=== PATIENT | female | born 1995 | race Caucasian/White ===

== ENCOUNTER 2017-07-15 07:15 | Emergency (ER) | payer MEDICAID, SELFPAY ==
[2017-07-15 07:16] VITALS: BP 134/83; PULSE 107; RESP 15; TEMP 36.8; BMI 22.4
--- NOTE | 2017-07-15 07:40 | ED.VISSUMM ---
- ER Visit Summary Date of Service: 07/15/17 Chief Complaint: [Nausea vomiting diarrhea] History of Present Illness: The patient is a 21 F [presents with nausea vomiting diarrhea for the last 24 hours. She has had 2-3 episodes of vomiting. She had diarrhea every hour. There is a small amount of bright red blood in her diarrhea as well as her vomit. No fevers or chills. No lightheadedness or dizziness. She has abdominal cramping. She is 33 weeks . She has not noticed any vaginal bleeding or discharge. She follows with Dr. Leavitt. She is otherwise healthy. Urination has been normal.] Physical Examination: [] WN WD NAD PERRL EOMI MMM NECK supple and nontender, no masses Regular tachycardic rhythm no murmur rub or gallop, no peripheral edema, symmetric radial pulses CTAB no respiratory distress ABDOMEN is distended, gravid, no tenderness, normal bowel sounds, no distension, no rebound or guarding SKIN is warm and dry no rashes Alert and Oriented x3, CN II-XII in tact, no motor or sensory deficits, gait normal No lymphadenopathy Test Results: [] Emergency Department Course and Treatment: [Patient was given a liter of fluids. She was given Zofran. Screening labs were obtained. She has a leukocytosis at 14.4. Hemoglobin is 11.1. It was 11.5 previously. She was feeling much better after antiemetics. She was tolerating crackers and water. Urine did not appear infected. Patient's abdominal cramping did improve. heart tones were 147. I spoke with OB who will see the patient up in labor and delivery. Patient was given a prescription for Zofran. She did not have an episode of diarrhea while in the emergency department. She is going to labor and delivery and hopefully they will be able to obtain a stool sample there.] Treatment Plan: [] Disposition: [Discharge to labor and delivery] Impression: [1. Hemorrhagic gastroenteritis 2. Third trimester ] This note was generated with [employer] dictation software. It may contain incorrect words, spelling, and punctuation that were not noted in review of the chart prior to signing ED Disposition - Plan for ED Patient: Chief Complaint: Nausea/Vomiting/Diarrhea Instructions: ED Vomiting Diarrhea Nonspecific Ad Prescriptions: Ondansetron [Zofran Odt] 4 mg PO Q8H PRN PRN #20 tablet PRN Reason: Nausea Additional Instructions: go directly to labor and delivery you should have stool specimen tested
--- NOTE | 2017-07-15 07:43 | ED.DCSUM_ITS ---
- ER Visit Summary Date of Service: 07/15/17 Chief Complaint: [Nausea vomiting diarrhea] History of Present Illness: The patient is a 21 F [presents with nausea vomiting diarrhea for the last 24 hours. She has had 2-3 episodes of vomiting. She had diarrhea every hour. There is a small amount of bright red blood in her diarrhea as well as her vomit. No fevers or chills. No lightheadedness or dizziness. She has abdominal cramping. She is 33 weeks . She has not noticed any vaginal bleeding or discharge. She follows with Dr. Leavitt. She is otherwise healthy. Urination has been normal.] Physical Examination: [] WN WD NAD PERRL EOMI MMM NECK supple and nontender, no masses Regular tachycardic rhythm no murmur rub or gallop, no peripheral edema, symmetric radial pulses CTAB no respiratory distress ABDOMEN is distended, gravid, no tenderness, normal bowel sounds, no distension , no rebound or guarding SKIN is warm and dry no rashes Alert and Oriented x3, CN II-XII in tact, no motor or sensory deficits, gait normal No lymphadenopathy Test Results: [] Emergency Department Course and Treatment: [Patient was given a liter of fluids. She was given Zofran. Screening labs were obtained. She has a leukocytosis at 14.4. Hemoglobin is 11.1. It was 11.5 previously. She was feeling much better after antiemetics. She was tolerating crackers and water. Urine did not appear infected. Patient's abdominal cramping did improve. heart tones were 147. I spoke with OB who will see the patient up in labor and delivery. Patient was given a prescription for Zofran. She did not have an episode of diarrhea while in the emergency department. She is going to labor and delivery and hopefully they will be able to obtain a stool sample there.] Treatment Plan: [] Disposition: [Discharge to labor and delivery] Impression: [1. Hemorrhagic gastroenteritis 2. Third trimester ] This note was generated with [employer] dictation software. It may contain incorrect words, spelling, and punctuation that were not noted in review of the chart prior to signing ED Disposition - Plan for ED Patient: Chief Complaint: Nausea/Vomiting/Diarrhea Instructions: ED Vomiting Diarrhea Nonspecific Ad Prescriptions: Ondansetron [Zofran Odt] 4 mg PO Q8H PRN PRN #20 tablet PRN Reason: Nausea Additional Instructions: go directly to labor and delivery you should have stool specimen tested
[2017-07-15] MEDS: 0.9% Normal Saline 1,000 ML 1000 ML IV (07:48)
[2017-07-15] MEDS: Ondansetron 4 MG/2 ML Vial IV (07:48)
[2017-07-15 08:04] LABS: Absolute Lymphocyte Count 1.38 X10^3/ul (0.83-4.51); Absolute Neutrophil Count 12.2 X10^3/uL (2.0-7.7); Basophil# 0.02 X10^3/uL; Basophil% 0.1 % (0-1); Eosinophil# 0.11 X10^3/uL; Eosinophils% 0.8 % (0-5); Hematocrit 32.1 % (37-47); Hemoglobin 11.1 g/dl (12.0-15.0); Lymphocyte # 1.38 X10^3/ul (4.0); Lymphocyte % 9.6 % (19-41); Mean Corp Hgb Conc 34.6 g/gl (32-36); Mean Corpuscular Hgb 28.7 pg (27.0-32.0); Mean Corpuscular Volume 82.9 fL (81-99); Mean Platelet Vol. 11.9 fl (6.2-12.0); Monocyte# 0.66 X10^3/uL; Monocyte% 4.6 % (0-10); Neutrophil # 12.17 X10^3/uL (2.7-7.7); Neutrophil % 84.3 % (47-70); Platelet Count 169 K/mm3 (150-450); RBC Distribution Width CV 11.8 % (11.6-14.6); Red Blood Count 3.87 M/mm3 (4.2-5.4); White Blood Count 14.4 K/mm3 (4.4-11.0)
[2017-07-15 08:05] LABS: POSITIVE COUNT NO; POSITIVE DIFFERENTIAL NO; POSITIVE MORPHOLOGY NO
[2017-07-15 08:15] LABS: ALB/GLOB Ratio 0.7 RATIO (0.9-2.4); AST(SGOT) 18 U/L (15-37); Alanine Aminotransfer ALT/SGPT 21 U/L (13-56); Albumin, Serum 2.9 g/dL (3.2-5.0); Alkaline Phosphatase 153 U/L (45-117); Anion Gap 9 (5-15); BUN 8 mg/dL (7-18); BUN/Creat Ratio 19.4 RATIO (10-20); Calcium,Total 8.7 mg/dL (8.5-10.1); Chloride 107 mmol/L (98-107); Creatinine, Serum 0.41 mg/dL (0.55-1.02); EST Glomerular Filtration Rate 209 mL/min (>60); Est Glom Filt Rate - Afr Amer 253 mL/min (>60); Estimated Creatinine Clearance 230.65 ml/min; Globulin 4.3 g/dL (2.2-4.2); Glucose 89 mg/dL (74-106); Lipase 66 U/L (73-393); Potassium 3.8 mmol/L (3.5-5.1); Protein, Total 7.2 g/dL (6.4-8.2); Sodium Level 137 mmol/L (136-145)
[2017-07-15 08:30] LABS: Bacteria 0 SEEN /hpf (None Seen); Mucous, Urine 0 SEEN /hpf (<or=2+); Red Blood Cells-Urine 0 SEEN /hpf (0-5)
[2017-07-15 08:35] LABS: Color, Urine Yellow (Yellow); Glucose, Dipstick Normal (Normal); Ketone-Dipstick 15 mg/dl (Negative); Leukocyte Esterase-Dipstick 100 /ul (Negative); Nitrite-Dipstick Negative (Negative); Occult Blood-Urine Negative /ul (Negative); Protein-Dipstick Negative (Negative); Urine Bilirubin Dipstick Negative (Negative); Urine Clarity Sl. Cloudy (Clear); Urine Urobilinogen Normal (Normal)
[2017-07-15 08:40] LABS: White Blood Cells 0-5 SEEN /hpf (0-5)
[2017-07-15 08:41] LABS: Squamous Epithelial Cells - UA 0-5 SEEN /hpf (5-10)
--- NOTE | 2017-07-15 09:20 | ED.DEP ---
ED Disposition - Plan for ED Patient: Chief Complaint: Nausea/Vomiting/Diarrhea Instructions: ED Vomiting Diarrhea Nonspecific Ad Prescriptions: Ondansetron [Zofran Odt] 4 mg PO Q8H PRN PRN #20 tablet PRN Reason: Nausea Additional Instructions: go directly to labor and delivery you should have stool specimen tested
[2017-07-15 09:32] VITALS: BP 108/69; PULSE 71; RESP 16; O2SAT 98
[2017-07-15 09:33] VITALS: BP 108/69; PULSE 71; RESP 16; O2SAT 96
== END 2017-07-15 09:34 | disposition home or self-care (01) ==
LOC: ED 08:09
PROVIDERS: Emergency Provider Emergency Medicine
DX: O99.613 Diseases of the digestive system complicating pregnancy, third trimester (principal); K52.9 Noninfective gastroenteritis and colitis, unspecified; O26.893 Other specified pregnancy related conditions, third trimester; R10.9 Unspecified abdominal pain; Z3A.33 33 weeks gestation of pregnancy
CPT/HCPCS: 80053; 81001; 83690; 85025; 87506; 96361; 96365; 96366; 96374; 99283; J7030; A4216; J2405

== ENCOUNTER 2017-07-15 09:35 | Outpatient (CLI) | payer MEDICAID, SELFPAY ==
[2017-07-15 07:16] VITALS: BMI 22.4
[2017-07-15 09:33] VITALS: BP 108/69
[2017-07-15 10:51] VITALS: BMI 23.1
--- NOTE | 2017-07-18 08:09 | OB.TRI.NOTE ---
History of Present Illness Reason For Visit: CRAMPING Date of Service: 07/15/17 Gestational age: 33 History of Present Illness: 21 yo presented to [facility] ED with CC of N/V/D and cramping for 24 hrs. 33 wk EGA primip. Per ER MD NOTE: Pt was feeling much better after antiemetics. She was tolerating crackers and water. Urine did not appear infected. Patient's abdominal cramping did improve. heart tones were 147. Sent to OB dept for monitoring , possible labor. Likely viral gastroenteritis by presentation. (See [facility] ED report for same day) Home Medications Medication Instructions Recorded Ondansetron [Zofran Odt] 4 mg PO Q8H PRN PRN #20 tablet 07/15/17 Vits [Prenatabs FA] 1 tablet PO DAILY 07/15/17 Allergies No Known Allergies Allergy (Verified 07/15/17 07:17) Physical Exam Vitals: Vital Signs BP 108/69 07/15/17 09:33 NST - FHR Rate Baby A NST Reactive:: Appropriate for gestational age FHR Category:: Category I Uterine Activity:: UCs noted but not felt by patient as UCs. Impression/Plan 33 wk, viral gastroenteritis Monitored for labor. Stool specimen sent - neg for C diff. Home. Rest and fluids. RTO for visit as scheduled.
--- NOTE | 2017-07-18 08:12 | OB.TRI.HP_ITS ---
History of Present Illness Reason For Visit: CRAMPING Date of Service: 07/15/17 Gestational age: 33 History of Present Illness: 21 yo presented to [facility] ED with CC of N/V/D and cramping for 24 hrs. 33 wk EGA primip. Per ER MD NOTE: Pt was feeling much better after antiemetics. She was tolerating crackers and water. Urine did not appear infected. Patient's abdominal cramping did improve. heart tones were 147. Sent to OB dept for monitoring , possible labor. Likely viral gastroenteritis by presentation. (See [facility] ED report for same day) Home Medications Medication Instructions Recorded Ondansetron [Zofran Odt] 4 mg PO Q8H PRN PRN #20 tablet 07/15/17 Vits [Prenatabs FA] 1 tablet PO DAILY 07/15/17 Allergies No Known Allergies Allergy (Verified 07/15/17 07:17) Physical Exam Vitals: Vital Signs BP 108/69 07/15/17 09:33 NST - FHR Rate Baby A NST Reactive:: Appropriate for gestational age FHR Category:: Category I Uterine Activity:: UCs noted but not felt by patient as UCs. Impression/Plan 33 wk, viral gastroenteritis Monitored for labor. Stool specimen sent - neg for C diff. Home. Rest and fluids. RTO for visit as scheduled.
== END 2017-07-15 13:55 | disposition home or self-care (01) ==
LOC: WPOUT 09:45 → WP 10:46
PROVIDERS: Visit Provider Obstetrics & Gynecology
DX: O98.513 Other viral diseases complicating pregnancy, third trimester (principal); A08.4 Viral intestinal infection, unspecified; O99.613 Diseases of the digestive system complicating pregnancy, third trimester; K52.9 Noninfective gastroenteritis and colitis, unspecified; K92.1 Melena; O26.893 Other specified pregnancy related conditions, third trimester; R10.9 Unspecified abdominal pain; Z3A.33 33 weeks gestation of pregnancy
CPT/HCPCS: 59025; 59050; 80053; 81001; 83690; 85025; 87493; 99218; J7030; A4216; G0378; J2405

== ENCOUNTER → 2017-07-26 13:23 | Outpatient (CLI) | payer MEDICAID, SELFPAY ==
[2017-07-26 14:42] LABS: Group B Strep DNA By PCR Negative (Negative); Internal Control PASS; Probe Check PASS; Specimen Processing Control PASS
== END ==
PROVIDERS: Visit Provider Obstetrics & Gynecology
DX: Z36.85 Encounter for antenatal screening for Streptococcus B (principal)
CPT/HCPCS: 87081; 87653

== ENCOUNTER 2017-09-02 11:10 | Inpatient (IN) | payer MEDICAID, SELFPAY ==
[2017-09-02 11:32] VITALS: BMI 25.6
[2017-09-02] MEDS: Lactated Ringers 1,000 ML 50 ML IV ×3 (11:50→14:51)
[2017-09-02 11:53] LABS: Hematocrit 31.5 % (37-47); Hemoglobin 10.3 g/dl (12.0-15.0); Mean Corp Hgb Conc 32.7 g/gl (32-36); Mean Corpuscular Hgb 25.7 pg (27.0-32.0); Mean Corpuscular Volume 78.6 fL (81-99); Mean Platelet Vol. 12.6 fl (6.2-12.0); Platelet Count 166 K/mm3 (150-450); RBC Distribution Width CV 13.1 % (11.6-14.6); RBC Distribution Width SD 36.8 fl (35.1-43.9); Red Blood Count 4.01 M/mm3 (4.2-5.4); White Blood Count 11.8 K/mm3 (4.4-11.0)
[2017-09-02 11:55] LABS: ROM Internal Control Test YES-OK TO RESULT pt. (Internal QC); ROM Patient Test POSITIVE (Negative)
[2017-09-02 11:57] LABS: Scan Indicated on CBC? Y/N NO
[2017-09-02 14:12] LABS: International Normalized Ratio 0.9; Protein, Urine (Random) 10.6 mg/dL (<11.9); Protein:Creat Ratio 316 mg/g CRE (0-200); Prothrombin Time (Protime)PT. 12.1 SECONDS (11.7-14.9)
[2017-09-02] MEDS: fentaNYL-bupivacaine (epidural) 100 ML BAG EPIDURAL ×2 (14:12→17:23)
[2017-09-02 14:13] LABS: Partial Thromboplast Time 25.9 Seconds (24.1-36.2)
[2017-09-02] MEDS: Oxytocin 30 units/NS 500 ml 30 UNITS/500 ML IV.SOLN IV (14:13)
[2017-09-02 14:30] LABS: AST(SGOT) 14 U/L (15-37); Alanine Aminotransfer ALT/SGPT 16 U/L (13-56); Creatinine, Serum 0.51 mg/dL (0.55-1.02); EST Glomerular Filtration Rate 162 mL/min (>60); Est Glom Filt Rate - Afr Amer 196 mL/min (>60); Estimated Creatinine Clearance 178.98 ml/min; Uric Acid 4.7 mg/dL (2.6-6.0)
[2017-09-02 14:31] LABS: Chlamydia Trachomatis by PCR Negative (Negative); Neisserai gonorrhoeae by PCR Negative (Negative); Probe Check PASS; Sample Adequacy Control PASS; Specimen Processing Control PASS
[2017-09-02] MEDS: Ondansetron 4 MG/2 ML Vial IV (18:34)
[2017-09-02] MEDS: Oxytocin 30 units/NS 500 ml 30 UNITS/500 ML IV.SOLN 334 UNITS IV (19:52)
--- NOTE | 2017-09-02 20:05 | PCM.OB.VAG ---
Vaginal Delivery Maternal Presentation: Active Labor, Spontaneous Rupture of Membranes Amniotic Membrane Rupture Type: Spontaneous at home Amniotic Fluid Description: Clear Final ADELAIDA: 08/29/17 Final ADELAIDA Source: US <20 weeks Gestational age: 40 Weeks and 4 Days Date of Procedure: 09/02/17 Pre-Operative Diagnosis: IUP Post-Operative Diagnosis: IUP Surgery/ Procedure Performed: Spontaneous Vaginal Delivery Type of Anesthesia: Epidural Description of Procedure: Spontaneous vaginal delivery of a viable female with Apgars of 8/9 with a three-vessel placenta that appears normal. First-degree midline episiotomy, extended to a second-degree midline laceration, repaired in layers with 3-0 rapide suture under epidural. Sponge counts okay. Delivery physician: Krishan Leavitt MD. Presentation: Vertex Placental Delivery Description: Spontaneous Placenta Disposition: [facility] Cord Vessel Description: 3 Vessels Cord Gases drawn per routine: ABG Cord Entanglement: None Estimated Blood Loss: 250 cc Infant A gender: Female (1 minute): 8 (5 minute): 9 Episiotomy Description: Midline, 1st degree Laceration: Midline, Perineal Extension/lac, 2nd degree Medications given after delivery: IV Pitocin Complications: None
--- NOTE | 2017-09-02 20:07 | PCM.DCVAG ---
Discharge Diet: No Restrictions Discharge Activity: May Shower, May Take a Tub Bath May resume sexual activity in: 4-6 weeks Additional Activity Instructions:: Nothing in the vagina for 4-6 weeks. You may return to work/school in 6 weeks. Call your doctor if you observe: Fever of 101 or Higher, Inability to urinate, Inability to have a bowel movement, Using more than one pad per hour Additional Instructions: If you experience any of the following, contact your healthcare provider. Bleeding that soaks a pad every hour for 2 hours Unrelieved incision or abdominal pain Swelling, redness, discharge or bleeding from your incision or episiotomy site Your incision begins to separate Problems urinating (including inability to urinate or burning while urinating). Visual changes Severe headache Flu-like symptoms Pain or redness in one of both of your breasts Pain, warmth, tenderness or swelling in your legs, especially the calf area Frequent nausea and vomiting Symptoms of depression or anxiety If you experience any of the following, call 911 or go to the nearest Emergency Room. Chest pain Problems breathing Seizure activity Partial or complete paralysis of a body part, slurred speech, weakness or drooping of the face, or a sudden inability to walk or hold your balance Allergies/Adverse Reactions: Allergies No Known Allergies Allergy (Verified 07/15/17 07:17) Medications to take at Discharge Vits [Prenatabs FA] 1 tablet PO DAILY 07/15/17 Please Follow Up With: Krishan Leavitt MD - [phone] When: Call to make an appointment with your doctor in 6 weeks. Primary Care Physician: Care Physician,No Primary [Primary Care Provider] -
--- NOTE | 2017-09-02 20:08 | DCINST_ITS ---
Discharge Diet: No Restrictions Discharge Activity: May Shower, May Take a Tub Bath May resume sexual activity in: 4-6 weeks Additional Activity Instructions:: Nothing in the vagina for 4-6 weeks. You may return to work/school in 6 weeks. Call your doctor if you observe: Fever of 101 or Higher, Inability to urinate, Inability to have a bowel movement, Using more than one pad per hour Additional Instructions: If you experience any of the following, contact your healthcare provider. * Bleeding that soaks a pad every hour for 2 hours * Unrelieved incision or abdominal pain * Swelling, redness, discharge or bleeding from your incision or episiotomy site * Your incision begins to separate * Problems urinating (including inability to urinate or burning while urinating) . * Visual changes * Severe headache * Flu-like symptoms * Pain or redness in one of both of your breasts * Pain, warmth, tenderness or swelling in your legs, especially the calf area * Frequent nausea and vomiting * Symptoms of depression or anxiety If you experience any of the following, call 911 or go to the nearest Emergency Room. * Chest pain * Problems breathing * Seizure activity * Partial or complete paralysis of a body part, slurred speech, weakness or drooping of the face, or a sudden inability to walk or hold your balance Allergies/Adverse Reactions: Allergies No Known Allergies Allergy (Verified 07/15/17 07:17) Medications to take at Discharge Vits [Prenatabs FA] 1 tablet PO DAILY 07/15/17 Please Follow Up With: Krishan Leavitt MD - [phone] When: Call to make an appointment with your doctor in 6 weeks. Primary Care Physician: Care Physician,No Primary [Primary Care Provider] -
[2017-09-02] MEDS: Oxytocin 30 units/NS 500 ml 30 UNITS/500 ML IV.SOLN 167 UNITS IV (20:22)
[2017-09-02 23:27] VITALS: BP 137/89; PULSE 95; RESP 18; TEMP 37.2
[2017-09-03] VITALS (7 sets, daily range): BP systolic 117–149; BP diastolic 50–101; PULSE 74–112; RESP 16–18; TEMP 36.3–37.1; O2SAT 96–100
--- NOTE | 2017-09-03 08:57 | PCM.PN.OB ---
Subjective: Patient without complaints. Breast-feeding going well. Vaginal bleeding has diminished. - Physical Exam Vital Signs AF, VSS Temp Pulse Resp BP 98 F 86 18 117/50 L 09/03/17 03:43 09/03/17 03:43 09/03/17 03:43 09/03/17 03:43 Oxygen Delivery Method Room Air Weight: 168 lb 9.6 oz Body Mass Index (BMI) 25.6 Intake and Output for Last 24 Hours 09/01/17 09/02/17 09/03/17 23:59 23:59 23:59 Intake Total 3411 / 3411 Output Total 1500 / 1500 250 / 250 Balance 1911 / 191 -250 / -250 Laboratory Tests Past 24 Hrs 09/02/17 09/02/17 09/02/17 11:07 11:25 11:25 WBC 11.8 H RBC 4.01 L Hgb 10.3 L Hct 31.5 L MCV 78.6 L MCH 25.7 L MCHC 32.7 RDW 13.1 RDW Differential 36.8 Plt Count 166 MPV 12.6 H PT INR APTT Creatinine Estim Creat Clear Calc Est GFR (MDRD) Af Amer Est GFR (MDRD) Non-Af Uric Acid AST ALT U Random Total Protein Urine Creatinine Protein/Creatinin Ratio Vag Amniotic Fld Detect POSITIVE H Chlam trachomat DNA PCR N.gonorrhoeae DNA (PCR) Blood Type O POSITIVE Antibody Screen NEGATIVE 09/02/17 09/02/17 09/02/17 12:30 13:50 13:50 WBC RBC Hgb Hct MCV MCH MCHC RDW RDW Differential Plt Count MPV PT 12.1 INR 0.9 APTT 25.9 Creatinine Estim Creat Clear Calc Est GFR (MDRD) Af Amer Est GFR (MDRD) Non-Af Uric Acid AST ALT U Random Total Protein 10.6 Urine Creatinine 33.50 Protein/Creatinin Ratio 316 H Vag Amniotic Fld Detect Chlam trachomat DNA PCR Negative N.gonorrhoeae DNA (PCR) Negative Blood Type Antibody Screen 09/02/17 13:50 WBC RBC Hgb Hct MCV MCH MCHC RDW RDW Differential Plt Count MPV PT INR APTT Creatinine 0.51 L Estim Creat Clear Calc 178.98 Est GFR (MDRD) Af Amer 196 Est GFR (MDRD) Non-Af 162 Uric Acid 4.7 AST 14 L ALT 16 U Random Total Protein Urine Creatinine Protein/Creatinin Ratio Vag Amniotic Fld Detect Chlam trachomat DNA PCR N.gonorrhoeae DNA (PCR) Blood Type Antibody Screen Medical Necessity - Tobacco Use Smoking Status: Never smoker Assessment/Plan Doing well. Continuing present care.
--- NOTE | 2017-09-03 12:40 | CASEMGMT ---
Social Work - Labor and Delivery Social Work Brief Assessment completed. Refer documentation below for further details. Date of Referral/Notification: 09/03/2017 Time of Referral: 0830 Referred By: verbal notification from water maintenance supervisor, Dr. Jean Baptiste Reason for Referral: First time mom, teen mother, assess for resources Date of Intervention: 09/03/2017 Time of Intervention: 1240 Informant: Medical record and mother of baby (MOB) Aminata Carver History: MOB is G1, P0 to 1 after delivering , Elda Cervantes. MOB with care starting later at 15 weeks, though good after starting care. Infant born weighing 7 pounds 2 ounces. MOB and father of baby (FOB) Baldomero Cervantes have been together for 3 years, but last month in July 2017. MOB denies any form of abuse in relationship with FOB. FOB is employed. MOB and FOB live with FOBs parents, and will stay in this home for at least another year while MOB and FOBs home is built. MOB reports home situation is safe and adequate, as well as denies any form of abuse in relationship with FOB. MOB denies any history of drug or alcohol use. Drug screen done prenatally on 04-10-17 was negative. Denies any history of mental health issues, and denies any history of suicidal or homicidal thoughts. MOB reports FOB and MOBs [id number] as strong and positive supports. MOB graduated high school, reports ability to read, write, and understand what is written. No history of children services involvement. Assessment: MOB reports to have needed supplies for baby, to have support at home going, including people to help with baby if needed. MOB does share that there has been some stress this , relating to MOBs parents accepting MOBs . MOB reports parents are coming around, and have visited the hospital, so MOB is hopeful things will start becoming more at ease. MOB educated to depression as well a risk factors, encouraging MOB to seek out help and support should any symptoms arise. MOB reports would talk with [id number] about emotions. MOB denies any concerns with home going, reports to feel a connection with baby, and gave appropriate responses about shaken baby and safe sleeping. No identified concerns from nursing staff about mother/infant bonding or interactions. MOB reports to have Medicaid and to know about WIC. MOB was appropriate during social work visit, bright affect, calm motor activity, normal eye contact. MOB did become teary eyed when talking about stress with own mother, but otherwise outwardly appeared happy and calm. Interventions: Educated to Help Me Grow. MOB declines referral but accepts information. depression packet given, including online supports for such. Verbal education on risk factors and symptoms. General resources for [facility] given, including options for counseling. Plan: MOB and to home when ready for discharge. Resources given. No further needs requested or indicated. -SWETA Ellison, [employer]
[2017-09-03] MEDS: Acetaminophen 500 MG Tablet 1000 MG PO (17:29)
[2017-09-04 02:10] VITALS: BP 127/84; PULSE 86; RESP 18; TEMP 36.1
[2017-09-04 08:15] VITALS: BP 123/85; PULSE 88; RESP 16; TEMP 36.6; O2SAT 97
--- NOTE | 2017-09-04 09:17 | PCM.PN.OB ---
Subjective: Patient without complaints. Breast-feeding going well. Ready to go home today. - Physical Exam Vital Signs AF, VSS Temp Pulse Resp BP Pulse Ox 96.9 F L 86 18 127/84 H 100 09/04/17 02:10 09/04/17 02:10 09/04/17 02:10 09/04/17 02:10 09/03/17 17:01 Oxygen Delivery Method Room Air Weight: 168 lb 9.6 oz Body Mass Index (BMI) 25.6 Intake and Output for Last 24 Hours 09/02/17 09/03/17 09/04/17 23:59 23:59 23:59 Intake Total 3411 / 3411 Output Total 1500 / 1500 450 / 450 Balance 1911 / 1911 -450 / -450 Medical Necessity - Tobacco Use Smoking Status: Never smoker Assessment/Plan Doing well. Will release to home with routine instructions.
== END 2017-09-04 11:00 | disposition home or self-care (01) | DRG 373 ==
LOC: WPOUT 11:12
PROVIDERS: Admitting Provider Obstetrics & Gynecology; Visit Provider Obstetrics & Gynecology
DX: O48.0 Post-term pregnancy (principal); Z37.0 Single live birth; Z3A.40 40 weeks gestation of pregnancy
CPT/HCPCS: 59025; 59050; 82565; 82570; 84112; 84156; 84450; 84460; 84550; 85027; 85610; 85730; 86850; 86900; 87491; 87591; 99218; J7120; G0378; J2405

== ENCOUNTER 2018-09-21 06:20 | Inpatient (IN) | payer MEDICAID, SELFPAY ==
[2018-09-21 07:00] VITALS: BMI 23.1
[2018-09-21] MEDS: Lactated Ringers 1,000 ML 50 ML IV (07:25)
[2018-09-21 07:45] VITALS: BMI 25.3
[2018-09-21 07:46] LABS: ROM Internal Control Test YES-OK TO RESULT pt. (Internal QC); ROM Patient Test Negative (Negative); Record Kit Lot#, ROM+ J7836
[2018-09-21 07:52] LABS: Absolute Neutrophil Count 8.8 X10^3/uL (2.0-7.7); Basophil# 0.03 X10^3/uL; Basophil% 0.3 % (0-1); Eosinophil# 0.07 X10^3/uL; Eosinophils% 0.6 % (0-5); Hematocrit 30.8 % (37-47); Hemoglobin 9.5 g/dl (12.0-15.0); Lymphocyte % 15.6 % (19-41); Mean Corp Hgb Conc 30.8 g/gl (32-36); Mean Corpuscular Hgb 21.3 pg (27.0-32.0); Mean Corpuscular Volume 68.9 fL (81-99); Mean Platelet Vol. 11.8 fl (6.2-12.0); Monocyte# 0.83 X10^3/uL; Monocyte% 7.2 % (0-10); Neutrophil # 8.76 X10^3/uL (2.7-7.7); Platelet Count 233 K/mm3 (150-450); RBC Distribution Width CV 15.2 % (11.6-14.6); RBC Distribution Width SD 37.9 fl (35.1-43.9); Red Blood Count 4.47 M/mm3 (4.2-5.4); White Blood Count 11.5 K/mm3 (4.4-11.0)
--- NOTE | 2018-09-21 08:02 | PCM.HP.OB ---
History Date of Admission: 09/21/18 Final ADELAIDA: 10/03/18 Final ADELAIDA Source: LMP Gestational age: 38 Weeks and 2 Days History of this : This is a 22 year-old, @ 38.2 wks in active labor- pt received PN care in [place]- by Dr Grover Weaver but recently moved and would [place] to [place]- pt delivered last child at [facility]. pt had good care since first trimester- has negative medical and surgical history. Pt denies any other concerns today. Allergies No Known Allergies Allergy (Verified 07/15/17 07:17) Home Medications: Home Medications Vits [Prenatabs FA] 1 tablet PO DAILY 07/15/17 Smoking Status: Never smoker Alcohol: None Number of Fetus(es): 1 Heart Tracin mod teddy + accels, no decels TOCO Analysis: q2-3 History Past Pregnancies: Past Pregnancies Delivery Date Name GA/Weeks Outcome Route Weight Gender Labor Length Anesthesia Delivery Location Provider FOB Labs: O+, HIV neg, RPR Neg, HEPB neg, Neg tox screen, Neg GC/Chlamydia, GBS neg Expected Infant Delivery Method: Spontaneous Vaginal Physical Exam General: Alert, Oriented x3 Abdomen: Soft, Non-Distended, Gravid Neurological: Cranial nerves II-XII grossly intact ACID DIPPER: Normal external genitalia Estimated gestational size: Appropriate for gestational size Presentation: Cephalic Cervix Dilation (cm): 6.5 Station: 0 Effacement (%): 90 Assessment/Plan This is a 22 year-old, @ 38.2 wks, care elsewhere- here in labor 1) admit to L&D 2) monitor FHR/TOCO 3) Epdiural if requested 4) PN records reviewed and complete 5) Anticipate
[2018-09-21 08:05] LABS: Differential Indicated SCAN CRITERIA MET; POSITIVE COUNT YES; POSITIVE DIFFERENTIAL NO; POSITIVE MORPHOLOGY NO
--- NOTE | 2018-09-21 08:06 | HP.PCM_ITS ---
History Date of Admission: 09/21/18 Final ADELAIDA: 10/03/18 Final ADELAIDA Source: LMP Gestational age: 38 Weeks and 2 Days History of this : This is a 22 year-old, @ 38.2 wks in active labor- pt received PN care in [place]- by Dr Grover Weaver but recently moved and would like to deliver in [place]- pt delivered last child at [facility]. pt had good care since first trimester- has negative medical and surgical history. Pt denies any other concerns today. Allergies No Known Allergies Allergy (Verified 07/15/17 07:17) Home Medications: Home Medications Vits [Prenatabs FA] 1 tablet PO DAILY 07/15/17 Smoking Status: Never smoker Alcohol: None Number of Fetus(es): 1 Heart Tracin mod teddy + accels, no decels TOCO Analysis: q2-3 History Past Pregnancies: Past Pregnancies Delivery Date Name GA/Weeks Outcome Route Weight Gender Labor Length Anesthesia Delivery Location Provider FOB Labs: O+, HIV neg, RPR Neg, HEPB neg, Neg tox screen, Neg GC/Chlamydia, GBS neg Expected Infant Delivery Method: Spontaneous Vaginal Physical Exam General: Alert, Oriented x3 Abdomen: Soft, Non-Distended, Gravid Neurological: Cranial nerves II-XII grossly intact [employer]ER: Normal external genitalia Estimated gestational size: Appropriate for gestational size Presentation: Cephalic Cervix Dilation (cm): 6.5 Station: 0 Effacement (%): 90 Assessment/Plan This is a 22 year-old, @ 38.2 wks, care elsewhere- here in labor 1) admit to L&D 2) monitor FHR/TOCO 3) Epdiural if requested 4) PN records reviewed and complete 5) Anticipate
[2018-09-21] MEDS: Oxytocin 30 units/NS 500 ml 30 UNITS/500 ML IV.SOLN 334 UNITS IV (08:53)
--- NOTE | 2018-09-21 09:04 | PCM.OPRPT ---
Vaginal Delivery Maternal Presentation: Active Labor Amniotic Membrane Rupture Type: Artificial Amniotic Fluid Description: Clear Final ADELAIDA: 10/03/18 Final ADELAIDA Source: LMP Gestational age: 38 Weeks and 2 Days Date of Procedure: 09/21/18 Pre-Operative Diagnosis: term gestation, Active labor Post-Operative Diagnosis: Same, live male Surgery/ Procedure Performed: Spontaneous Vaginal Delivery Type of Anesthesia: None Description of Procedure: of live male infant born without difficulty. Gentle downward traction with good maternal effort for delivery. Placenta delivered without complication. 2nd perineal - 1% lidocaine injected and Laceration repaired with 3-0 vicryl. Presentation: Vertex Placental Delivery Description: Spontaneous Placenta Disposition: [facility] Cord Vessel Description: 3 Vessels Cord Entanglement: None Estimated Blood Loss: 250 Infant A gender: Male (1 minute): 8 (5 minute): 9 Episiotomy Description: None Laceration: Perineal Extension/lac - 1% lidocaine injected and repaired with 3-0 vicryl, 1st degree Medications given after delivery: IV Pitocin Complications: None
[2018-09-21 09:08] LABS: Anisocytosis 2+; Differential Comment SCANNED; Microcytosis 2+
[2018-09-21] MEDS: Oxytocin 30 units/NS 500 ml 30 UNITS/500 ML IV.SOLN 167 UNITS IV (09:26)
[2018-09-21] MEDS: 0.9% Saline Lock 10 ML Syringe IV (10:22)
[2018-09-21 12:48] VITALS: BP 108/51; PULSE 80; RESP 16; TEMP 37; O2SAT 98
[2018-09-21 16:37] VITALS: BP 112/68; PULSE 78; RESP 18; TEMP 37; O2SAT 98
[2018-09-21] MEDS: Senna/Docusate Sodium 1 Tablet PO (17:43)
[2018-09-21] MEDS: Ibuprofen 600 MG Tablet PO (19:18)
[2018-09-21 19:48] VITALS: BP 126/86; PULSE 99; RESP 16; TEMP 36.8; O2SAT 98
[2018-09-22 00:24] VITALS: BP 106/62; PULSE 82; RESP 16; TEMP 36.4; O2SAT 97
[2018-09-22 04:04] VITALS: BP 121/70; PULSE 86; RESP 15; TEMP 36.2; O2SAT 97
[2018-09-22 09:00] VITALS: BP 128/87; PULSE 97; RESP 24; TEMP 36.4; O2SAT 98
--- NOTE | 2018-09-22 09:06 | DCINST_ITS ---
Discharge Diet: No Restrictions Discharge Activity: Return to Normal Activity, May Drive, May Shower, May Take a Tub Bath May resume sexual activity in: 4-6 weeks Weight Bearing Status: Full weight bearing Additional Activity Instructions:: Nothing in the vagina for 4-6 weeks. You may return to work/school in 6 weeks. Call your doctor if your incision/area has: Continuous Slow Oozing, Sudden Increased Bleeding, Increased Pain/ Swelling, Increased Redness, Foul Smelling Discharge Call your doctor if you observe: Fever of 101 or Higher, Inability to urinate, Inability to have a bowel movement, Using more than one pad per hour, Chest pain, Increased palpitations (irregular heartbeat), Uncontrolled pain Additional Instructions: If you experience any of the following, contact your healthcare provider. * Bleeding that soaks a pad every hour for 2 hours * Fever 100.4 or higher * Unrelieved incision or abdominal pain * Swelling, redness, discharge or bleeding from your incision or episiotomy site * Your incision begins to separate * Problems urinating (including inability to urinate or burning while urinating). * Visual changes * Severe headache * Flu-like symptoms * Pain or redness in one of both of your breasts * Pain, warmth, tenderness or swelling in your legs, especially the calf area * Frequent nausea and vomiting * Symptoms of depression or anxiety If you experience any of the following, call 911 or go to the nearest Emergency Room. * Chest pain * Problems breathing * Seizure activity * Partial or complete paralysis of a body part, slurred speech, weakness or drooping of the face, or a sudden inability to walk or hold your balance Allergies/Adverse Reactions: Allergies No Known Allergies Allergy (Verified 09/21/18 08:04) Medications to take at Discharge Vits [Prenatabs FA ] 1 tablet PO DAILY 07/15/17 Ibuprofen [Motrin] 600 mg PO Q6H PRN PRN tablet 09/22/18 Please Follow Up With: Sheryl Santos MD When: Call to make an appointment with your doctor in 2 weeks and 6 weeks. Primary Care Physician: Care Physician,No Primary [Primary Care Provider] - Test Results: Test results from this visit will be discussed in further detail at your follow- up appointment, if applicable.
--- NOTE | 2018-09-22 09:06 | PCM.PN.OB ---
Patient Problems: Active and Suspected Problems Vaginal delivery (Acute) Subjective: Doing well per patient and nursing staff. Ambulating and taking PO without difficulty. Voiding and passing flatus. Denies any increased pain, bleeding or clots. without difficulty. Planning D/C home today. - Physical Exam General: Alert, Oriented x3, Cooperative HEENT: Atraumatic, Normocephalic Neck: Supple, Trachea Midline Lungs: Clear to auscultation, Normal air movement, No rhonchi, No wheeze Cardiovascular: Regular rate, Regular Rhythm, No murmurs Abdomen: Bowel Sounds Present, Soft, - - Fundus firm 2 below U Extremities: No edema Neurological: Deep Tendon Reflexes 2+/4 and Symmetrical Psych/Mental Status: Normal Affect, Appropriate Vital Signs Temp Pulse Resp BP Pulse Ox 97.1 F L 86 15 121/70 H 97 09/22/18 04:04 09/22/18 04:04 09/22/18 04:04 09/22/18 04:04 09/22/18 04:04 Oxygen Delivery Method Room Air Weight: 162 lb Body Mass Index (BMI) 25.3 Laboratory Tests Past 24 Hrs 09/21/18 09/21/18 07:25 07:25 Total Counted Not Reportable Differential Comment SCANNED Anisocytosis 2+ Microcytosis 2+ Blood Type O POSITIVE Antibody Screen NEGATIVE Medical Necessity - Tobacco Use Smoking Status: Never smoker Assessment/Plan All Active Problems Vaginal delivery (Acute) A:PPD #1 P: 1) Discharge and instructions reviewed. Planning D/C home today 2) Declines Ibuprofen, will take OTC. 3) Follow up in 2 weeks and 6 weeks
== END 2018-09-22 13:15 | disposition home or self-care (01) | DRG 560 ==
PROVIDERS: Admitting Provider Obstetrics & Gynecology; Visit Provider Obstetrics & Gynecology
DX: O70.0 First degree perineal laceration during delivery (principal); Z3A.38 38 weeks gestation of pregnancy; Z37.0 Single live birth
CPT/HCPCS: 59025; 59050; 84112; 85025; 86850; 86900; 99218; J7120; A4216; G0378

== ENCOUNTER 2025-03-28 10:26 | Emergency (ER) | payer MEDICAID, SELFPAY ==
[2025-03-28 10:26] VITALS: BP 120/81; PULSE 106; RESP 18; TEMP 36.9; O2SAT 97; BMI 27.6
--- OUTSIDE RECORDS SUMMARY | 2025-03-28 11:12 | XMS RPT_ITS | CCD ---
Author Organization [facility] Inform ion [facility] Care Team Providers Care Configuration Release Manager Name Role Phone ANGELES LAUREANO Attending Unavailable ANGELES LAUREANO Consulting Unavailable VACCMANUEL, FATMATA Attending Unavailable VACCARIJANINE, FATMATA Primary Care Unavailable VACCARIJANINE, FATMATA Admitting Unavailable Cody ELI, Christie J Unavailable Ld SIMMONSN, Kellen Unavailable Savannah Ramos LPN Unavailable Unavailable Uptain CNM, Crystal K Unavailable [phone] Vicky LAZO, Lore Unavailable Unavailable Amita Santos MA Unavailable Unavailable Teto KHOURY, Lee Unavailable Unavailable Unavailable Unavailable Unavailable Primary Care Provider Unavailabl e UPTAIN, CRYSTAL CNM Attending Unavailable UPTAIN, CRYSTAL CNM Primary Care Unavailable UPTAIN, CRYSTAL CNM Admitting Unavailable CODY, CHRISTIE PAC Attending Unavailable ROSS, CHRISTIE PAC Primary Care Unavailable ROSS, CHRISTIE PAC Admitting Unavailable UPTAIN, CRYSTAL CNM Attending Unavailable UPTAIN, CRYSTAL CNM Primary Care Unavailable UPTAIN, CRYSTAL CNM Admitting Unavailable VACCARIELLO, FATMATA Attending Unavailable VACCARIELLO, FATMATA Primary Care Unavailable VACCARIELLO, FATMATA Admitting Unavailable UPTAIN, CRYSTAL CNM Attending Unavailable UPTAIN, CRYSTAL CNM Primary Care Unavailable UPTAIN, CRYSTAL CNM Admitting Unavailable Riya Burton MD Primary Care Provider Unavailable Primary Care Provider Unavailabl e ISSA, MEGAN Attending Unavailable ISSA, MEGAN Referring Unavailable ISSA, MEGAN Referring Unavailable ISSA, MEGAN Referring Unavailable CHRISTIE LUCIANO Attending Unavailable Medications Current Medications Medication Drug Class(es) Dates Sig (Normalized) Sig (Original) Ascorbic Acid (7 sources) Vitamin C Vitamin C aspirin 81 mg delayed release oral tablet (2 sources) Platelet Aggregation Inhibitor, Nonsteroidal Anti-inflammatory Drug Start: 02-11-2025 take 1 tablet by mouth once daily aspirin, enteric coated (ECOTRIN LOW STRENGTH) 81 mg EC tablet Indications: with uncertain dates, antepartum (HCC) Take 1 tablet by mouth once daily. 90 tablet 3 02/11/2025 Active ferrous sulfate 325 mg oral tablet (7 sources) Iron (ferrous sulfate) 325 mg (65 mg iron) tablet ; (325 mg (65 mg iro) vitamins no.2 ( VITAMIN NO.2 ORAL) (2 sources) vitamin s no.2 ( VITAMIN NO.2 ORAL) Take by mouth once daily. Active Completed/Discontinued Medications Medication Drug Class(es) Dates Sig (Normalized) Sig (Original) miSOPROStol 0.2 mg oral tablet (7 sources) Prostaglandin E1 Analog Start: 06-05-2022 End: 06-06-2022 take 3 tablets by mouth once miSOPROStol 200 MCG Oral Tablet ; 3 Tablet once for 1 days Quantity: 3 {Tablet} Refills: 0 Ordered: 05-Jun-2022 EARNEST Crowder Crystal K Start: 05-Jun-2022 End: 06-Jun-2022 Status: Inactive Problems Active Problems Problem Classification Problem Date Documented Date Episodic/Chronic Fluid and electrolyte disorders (1 source) Dehydration; Translations: [Dehydration] Onset: 05-16-2023 Episodic Immunizations and screening for infectious disease (2 sources) Encounter for screening for infections with a predominantly sexual mode of transmission; Translations: [Encounter for screening for human papillomavirus (HPV)] Onset: 02-11-2025 Episodic Nonmalignant breast conditions (4 sources) Lump in bilateral breasts; Translations: [Unspecified lump in the right breast, unspecified quadrant] 07-19-2023 Episodic Other complications of (20 sources) Proteinuria; Translations: [Gestational proteinuria, unspecified trimester] 06-04-2023 Episodic Other complications of (3 sources) Gestational proteinuria, unspecified trimester; Translations: [Gestational proteinuria, unspecified trimester] Onset: 05-27-2023 Episodic Other complications of (3 sources) Other viral diseases complicating , third trimester; Translations: [Other viral diseases complicating , third trimester] Onset: 05-14-2023 Episodic Other complications of (1 source) Decreased movements, third trimester, not applicable or unspecified; Translations: [Decreased movements, third trimester, not applicable or unspecified] Onset: 05-14-2023 Episodic Other complications of (3 sources) Late entry into care; Translations: [Supervision of with insufficient care, unspecified trimester] Onset: 02-11-2025 02-11-2025 Episodic Other complications of (1 source) Supervision of with grand multiparity, second trimester; Translations: [High risk multigravida in second trimester (HCC)] Onset: 03-11-2025 Episodic Other complications of (1 source) Supervision of with insufficient care, unspecified trimester; Translations: [Late care (HCC)] Onset: 02-11-2025 Episodic Other ear and sense organ disorders (13 sources) Decreased hearing ; Translations: [Unspecified hearing loss, bilateral] 05-27-2023 Chronic Other infections; including parasitic (14 sources) Post-viral disorder; 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 of other and unspecified infectious and parasitic diseases] 06-04-2023 Chronic Other lower respiratory disease (3 sources) Dyspnea, unspecified; Translations: [Dyspnea, unspecified] Onset: 05-16-2023 Episodic Other lower respiratory disease (1 source) Rib pain; Translations: [Pleurodynia] 09-30-2020 Episodic Other conditions (14 sources) [id number] at regardless of gestation period; Translations: [Other heavy for gestational age ] 06-04-2023 Episodic Other conditions (3 sources) Large for gestation age fetus; Translations: [Other heavy for gestational age ] Onset: 02-11-2025 02-11-2025 Episodic Other and delivery including normal (20 sources) Normal ; Translations: [Encounter for supervision of other normal , second trimester] Onset: 02-11-2025 04-17-2023 Episodic Other screening for suspected conditions (not mental disorders or infectious disease) (20 sources) Patient encounter status; Translations: [Encounter for other general counseling and advice on procreation] 05-29-2022 Episodic Comment on above: Nexplanon removed to day, desires fertility in the near future. Will use condoms until ready. Other screening for suspected conditions (not mental disorders or infectious disease) (3 sources) Cancer cervix screening status; Translations: [Encounter for screening for malignant neoplasm of cervix] Onset: 02-11-2025 02-11-2025 Episodic Residual codes; unclassified (13 sources) Gestation period, 31 weeks; Translations: [31 weeks gestation of ] 04-17-2023 Episodic Residual codes; unclassified (13 sources) Gestation period, 36 weeks; Translations: [36 weeks gestation of ] 05-20-2023 Episodic Residual codes; unclassified (20 sources) Gestation period, 37 weeks; Translations: [37 weeks gestation of ] 05-28-2023 Episodic Residual codes; unclassified (11 sources) Gestation period, 38 weeks; Translations: [38 weeks gestation of ] 06-04-2023 Episodic Residual codes; unclassified (7 sources) Non-smoker; Translations: [Other specified health status] 06-04-2023 Episodic Residual codes; unclassified (7 sources) Gestation period, 27 weeks; Translations: [27 weeks gestation of ] 03-19-2023 Episodic Residual codes; unclassified (7 sources) Gestation period, 22 weeks; Translations: [22 weeks gestation of ] 02-14-2023 Episodic Residual codes; unclassified (7 sources) Gestation period, 18 weeks; Translations: [18 weeks gestation of ] 01-16-2023 Episodic Residual codes; unclassified (7 sources) Gestation period, 13 weeks; Translations: [13 weeks gestation of ] 12-14-2022 Episodic Residual codes; unclassified (1 source) 35 weeks gestation of ; Translations: [35 weeks gestation of ] Onset: 05-16-2023 Episodic Residual codes; unclassified (1 source) Gestation period, 17 weeks; Translations: [17 weeks gestation of ] 02-11-2025 Episodic Residual codes; unclassified (1 source) 21 weeks gestation of ; Translations: [21 weeks gestation of (HCC)] Onset: 03-11-2025 Episodic Spontaneous (14 sources) Miscarriage; Translations: [Complete or unspecified spontaneous without complication] 06-05-2022 Episodic Unclassified (2 sources) SORE THROAT/COUGH Onset: 08-05-2018 Unclassified (7 sources) Abortions, spontaneous 06-04-2023 Comment on above: 1. Unclassified (7 sources) 06-04-2023 Comment on above: 4. Unclassified (7 sources) Number of Children 06-04-2023 Comment on above: 2. Michel 09/02/17Ava 09/21/2018 Unclassified (14 sources) Number of Pregnancies 06-04-2023 Comment on above: 4. 3. Unclassified (7 sources) Para 06-04-2023 Comment on above: 2. Unclassified (7 sources) Vaginal deliveries 06-04-2023 Comment on above: 2. Viral infection (1 source) COVID-19; Translations: [COVID-19] Onset: 05-16-2023 Past or Other Problems Problem Classification Problem Date Documented Da te Episodic/Chronic Unclassified (5 sources) visit - The patient is here for a 38 week (1 day) visit. The patient feels well with minor complaints. The patient has complaints of contractions (Irregular ctx's). Vaginal discharge is described as mucous (States that she lost her mucous plug on Thursday 05/31.). 06-04-2023 Unclassified (7 sources) visit - The patient is here for a 37 week (1 day) visit. The patient feels well with no complaints. There has been no vaginal discharge. There has been no vaginal bleeding. 05-28-2023 Unclassified (7 sources) visit - The patient is here for a 37 week visit. 05-27-2023 Unclassified (7 sources) visit - The patient is here for a 36 week visit. 05-20-2023 Unclassified (7 sources) visit - The patient is here for a 31 week visit. 04-17-2023 Unclassified (7 sources) visit - The patient is here for a 27 week (1) visit. 03-19-2023 Unclassified (7 sources) visit - The patient is here for a 22 week visit. 02-14-2023 Unclassified (7 sources) visit - The patient is here for a 18 week (1) visit. 01-16-2023 Unclassified (7 sources) visit (initial) - The patient suspects she is due to a positive home test and missed menses. Last menstrual period: Date: (09.10.2022). - (4) Parity - (2) Abortions - (1). The patient has no complaints. There has been no vaginal discharge. There has been no vaginal bleeding. There have been no urinary problems. There have been no bowel problems. Contraceptive history includes none. There is no previous surgical history. Current medications include vitamins. There is no alcohol, caffeine, illicit drug or tobacco use. 12-14-2022 Unclassified (7 sources) visit (initial) - The patient suspects she is due to a positive home test and missed menses. Last menstrual period: Date: (03/16/22). - (2) Parity - (2) Abortions - (0). The patient has no complaints. There has been no vaginal discharge. Vaginal bleeding is described as none (pt was bleeding heavy 05/07 for almost a weeknone since). There have been no urinary problems. There have been no bowel problems. Contraceptive history includes none. There is no previous surgical history. Current medications include vitamins. Habits include caffeine, but there is no alcohol, illicit drug or tobacco use. 05-30-2022 Unclassified (7 sources) [ADDITIONAL REASON] - The was spontaneous and occurred on : (05/07/22). The symptoms of the have been noted for 7 days. The bleeding associated with the has been moderate and has ceased. There were no precipitating factors. The was accompanied by blood clots. The symptoms have been associated with cramps, but have not been associated with chills, dizziness or fever. The patient has experienced no previous abortions. 05-30-2022 Unclassified (7 sources) nexplanon removal - Patient states Napolanon was due to be removed October 2021. She is here today for removal. At this time she states she is not interested in another form of contraception. States her and her are going to [facility]. 03-07-2022 Unclassified (7 sources) Well adult female - The patient feels well with minor complaints, has good energy level and is sleeping well. The first day of the last menstrual period was : (just got off of it). The patient has a balanced diet. The patient exercises none (active). The patient sleeps 6 hours per night. Note for Well adult female: pt had TB test and tetanus shot 01/03/22Patient needs form completed for work.Patient reports noting a decrease in her hearing on both sides over the past year. She denies any ear pain, tinnitus, vertigo, or seasonal allergies. She does not and has not worked in a noisy work environment. She denies frequent use of headphones. 02-14-2022 Unclassified (2 sources) Breast lump - The lump is on the left breast. The onset of the lump has been acute and has been occurring in a persistent pattern for 1 month. The course has been constant. The lump is described as tender (at times). The lump is described as mild. The first day of the last menstrual period was : (Delivered her son 6 weeks ago. She has not returned to menstruating. She is not currently .). Note for Breast lump: Patient reports previous cysts in her breasts that she had to have removed. 07-19-2023 Unclassified (1 source) visit - The patient is here for a 38 week (1 day) visit. 06-04-2023 Results Test Name Value Interpretation Reference Range Facil ity Jermaine 03-12-2025 CNPN Telephone (OBGYWM) AMINATA NOLASCO ([id number]) 1995 F Date Time Provider Department 03/12/25 CHRISTIE LUCIANO OBGYW During your visit today, we recorded the following information about you: Linda Aguillon RN 03/12/2025 10:12 AM Signed Attempted to call patient. Unable to leave message because voicemail is not set up yet. [employer] message sent. 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 Lnida Aguillon RN Allergies As of Date: 03/12/2025 (No Known Allergies) Date Reviewed: 03/11/2025 Reviewed by: Christie Luciano MD - Fully Assessed Reason for Visit: Forms [913] Prescriptions as of 03/16/2025 - aspirin, enteric coated (ECOTRIN LOW STRENGTH) 81 mg EC tablet Take 1 tablet by mouth once daily. - vitamins no.2 ( VITAMIN NO.2 ORAL) Take by mouth once daily. Problem List As Of Date 03/12/2025 Noted Resolved Encounter for supervision of normal intrauterin* LGA (large for gestational age) ([facility]) [P*02/11/2025 Late care ([facility]) [O09.30] 02/11/2025 High risk multigravida in second trimester (HCC*03/11/2025 Encounter Status:Closed by LINDA AGUILLON on 03/16/25 [facility] CNCOon 02-18-2025 CNCO Letter Text [facility] CNPNon 02-12-2025 CNPN Telephone ([id number]) AMINATA NOLASCO ([id number]) 1995 F Date Time Provider Department 02/12/25 MAHI MARTINEZ [id number] During your visit today, we recorded the following information about you: Mahi Martinez RN 02/12/2025 12:00 PM Signed 1st risk assessment form submitted 02/12/2025. 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 - vitamins no.2 ( VITAMIN NO.2 ORAL) Take by mouth once daily. Problem List As Of Date 02/12/2025 Noted Resolved Encounter for supervision of normal intrauterin*09/04/202 5 LGA (large for gestational age) infant ([facility]) [P*02/11/2025 Late care ([facility]) [O09.30] 02/11/2025 Encounter Status:Closed by MAHI MARTINEZ on 02/12/25 Normal [facility] Bacteria Ur Culton 5 Bacteria identified Cx Nom (U) ORGANISM ID: 1 >=100,000 CFU/ml Normal urogenital mali Normal [facility] Comment on above: Performed By: #### R UBIGG #### [facility] CLIA [id number] [address] [place] [address] [place] C. trachomatis+N. gonorrhoea e DNA AMARI+probe Ql (Unsp spec)on 02-11-2025 C. trachomatis rRNA AMARI+probe Ql (Unsp spec) Not detected Normal Not detected [facility] Comment on above: Order Comment: Speci men Type: BLOOD SPECIMEN Ordering Facility: [facility] Address: [address] [place] [address] Performed By: #### R UBIGG #### [facility] CLIA [id number] [address] [place] [address] [place] N. gonorrhoeae rRNA AMARI+probe Ql (Unsp spec) Not detected Normal Not detected [facility] Comment on above: Order Comment: Speci men Type: BLOOD SPECIMEN Ordering Facility: [facility] Address: [address] [place] [address] Performed By: #### R UBIGG #### [facility] CLIA [id number] [address] [place] [address] [place] CBC W Auto Differential pane l (Bld)on 02-11-2025 Basophils (Bld) [#/Vol] 0.03 10*3/uL Normal <0.11 [facility] Comment on above: Order Comment: Speci men Type: BLOOD SPECIMEN Ordering Facility: [facility] Address: [address] [place] [address] Performed By: #### R UBIGG #### [facility] CLIA [id number] [address] [place] [address] [place] Basophils/100 WBC (Bld) 0.3 % Normal [facility] Comment on above: Order Comment: Speci men Type: BLOOD SPECIMEN Ordering Facility: [facility] Address: [address] [place] [address] Performed By: #### R UBIGG #### [facility] CLIA [id number] [address] [place] [address] [place] Differential cell count method Nom (Bld) Auto Normal [facility] Comment on above: Order Comment: Speci men Type: BLOOD SPECIMEN Ordering Facility: [facility] Address: [address] [place] [address] Performed By: #### R UBIGG #### [facility] CLIA [id number] [address] [place] [address] [place] Eosinophils (Bld) [#/Vol] 0.34 10*3/uL Normal <0.46 [facility] Comment on above: Order Comment: Speci men Type: BLOOD SPECIMEN Ordering Facility: [facility] Address: [address] [place] [address] Performed By: #### R UBIGG #### [facility] CLIA [id number] [address] [place] [address] [place] Eosinophils/100 WBC (Bld) 3.7 % Normal [facility] Comment on above: Order Comment: Speci men Type: BLOOD SPECIMEN Ordering Facility: [facility] Address: [address] [place] [address] Performed By: #### R UBIGG #### [facility] CLIA [id number] [address] [place] [address] [place] Erythrocyte distribution width (RBC) [Ratio] 14.0 % Normal 11.5-15.0 [facility] Comment on above: Order Comment: Speci men Type: BLOOD SPECIMEN Ordering Facility: [facility] Address: [address] [place] [address] Performed By: #### R UBIGG #### [facility] CLIA [id number] [address] [place] [address] [place] Hematocrit (Bld) [Volume fraction] 35.3 % Low 36.0-46.0 [facility] Comment on above: Order Comment: Speci men Type: BLOOD SPECIMEN Ordering Facility: [facility] Address: [address] [place] [address] Performed By: #### R UBIGG #### [facility] CLIA [id number] [address] [place] [address] [place] Hemoglobin (Bld) [Mass/Vol] 12.1 g/dL Normal 11.5-15.5 [facility] Comment on above: Order Comment: Speci men Type: BLOOD SPECIMEN Ordering Facility: [facility] Address: [address] [place] [address] Performed By: #### R UBIGG #### [facility] CLIA [id number] [address] [place] [address] [place] Immature granulocytes (Bld) [#/Vol] 0.04 10*3/uL Normal <0.10 [facility] Comment on above: Order Comment: Speci men Type: BLOOD SPECIMEN Ordering Facility: [facility] Address: [address] [place] [address] Performed By: #### R UBIGG #### [facility] CLIA [id number] [address] [place] [address] [place] Immature granulocytes/100 WBC (Bld) 0.4 % Normal [facility] Comment on above: Order Comment: Speci men Type: BLOOD SPECIMEN Ordering Facility: [facility] Address: [address] [place] [address] Performed By: #### R UBIGG #### [facility] CLIA [id number] [address] [place] [address] [place] Lymphocytes (Bld) [#/Vol] 1.81 10*3/uL Normal 1.00-4.00 [facility] Comment on above: Order Comment: Speci men Type: BLOOD SPECIMEN Ordering Facility: [facility] Address: [address] [place] [address] Performed By: #### R UBIGG #### [facility] CLIA [id number] [address] [place] [address] [place] Lymphocytes/100 WBC (Bld) 19.7 % Normal [facility] Comment on above: Order Comment: Speci men Type: BLOOD SPECIMEN Ordering Facility: [facility] Address: [address] [place] [address] Performed By: #### R UBIGG #### [facility] CLIA [id number] [address] [place] [address] [place] MCH (RBC) [Entitic mass] 27.3 pg Normal 26.0-34.0 [facility] Comment on above: Order Comment: Speci men Type: BLOOD SPECIMEN Ordering Facility: [facility] Address: [address] [place] [address] Performed By: #### R UBIGG #### [facility] CLIA [id number] [address] [place] [address] [place] MCHC (RBC) [Mass/Vol] 34.3 g/dL Normal 30.5-36.0 [facility] Comment on above: Order Comment: Speci men Type: BLOOD SPECIMEN Ordering Facility: [facility] Address: [address] [place] [address] Performed By: #### R UBIGG #### [facility] CLIA [id number] [address] [place] [address] [place] MCV (RBC) [Entitic vol] 79.7 fL Low 80.0-100.0 [facility] Comment on above: Order Comment: Speci men Type: BLOOD SPECIMEN Ordering Facility: [facility] Address: [address] [place] [address] Performed By: #### R UBIGG #### [facility] CLIA [id number] [address] [place] [address] [place] Monocytes (Bld) [#/Vol] 0.47 10*3/uL Normal <0.87 [facility] Comment on above: Order Comment: Speci men Type: BLOOD SPECIMEN Ordering Facility: [facility] Address: [address] [place] [address] Performed By: #### R UBIGG #### [facility] CLIA [id number] [address] [place] [address] [place] Monocytes/100 WBC (Bld) 5.1 % Normal [facility] Comment on above: Order Comment: Speci men Type: BLOOD SPECIMEN Ordering Facility: [facility] Address: [address] [place] [address] Performed By: #### R UBIGG #### [facility] CLIA [id number] [address] [place] [address] [place] Neutrophils (Bld) [#/Vol] 6.48 10*3/uL Normal 1.45-7.50 [facility] Comment on above: Order Comment: Speci men Type: BLOOD SPECIMEN Ordering Facility: [facility] Address: [address] [place] [address] Performed By: #### R UBIGG #### [facility] CLIA [id number] [address] [place] [address] [place] Neutrophils/100 WBC (Bld) 70.8 % Normal [facility] Comment on above: Order Comment: Speci men Type: BLOOD SPECIMEN [facility] [facility] Address: [address] [place] [address] Performed By: #### R UBIGG #### [facility] CLIA [id number] [address] [place] [address] [place] Nucleated RBC (Bld) [#/Vol] 10*3/uL Normal <0.01 [facility] Comment on above: Order Comment: Speci men Type: BLOOD SPECIMEN Ordering Facility: [facility] Address: [address] [place] [address] Performed By: #### R UBIGG #### [facility] CLIA [id number] [address] [place] [address] [place] Nucleated RBC/100 WBC (Bld) [Ratio] 0.0 /100 WBC Normal [facility] Comment on above: Order Comment: Speci men Type: BLOOD SPECIMEN Ordering Facility: [facility] Address: [address] [place] [address] Performed By: #### R UBIGG #### [facility] CLIA [id number] [address] [place] [address] [place] Platelet mean volume (Bld) [Entitic vol] 11.8 fL Normal 9.0-12.7 [facility] Comment on above: Order Comment: Speci men Type: BLOOD SPECIMEN Ordering Facility: [facility] Address: [address] [place] [address] Performed By: #### R UBIGG #### [facility] CLIA [id number] [address] [place] [address] [place] Platelets (Bld) [#/Vol] 188 10*3/uL Normal 150-400 [facility] Comment on above: Order Comment: Speci men Type: BLOOD SPECIMEN Ordering Facility: [facility] Address: [address] [place] [address] Performed By: #### R UBIGG #### [facility] CLIA [id number] [address] [place] [address] [place] RBC (Bld) [#/Vol] 4.43 10*6/uL Normal 3.90-5.[address] [facility] Comment on above: Order Comment: Speci men Type: BLOOD SPECIMEN Ordering Facility: [facility] Address: [address] [place] [address] Performed By: #### R UBIGG #### [facility] CLIA [id number] [address] [place] [address] [place] WBC (Bld) [#/Vol] 9.17 10*3/uL Normal 3.70-11.[address] [facility] Comment on above: Order Comment: Speci men Type: BLOOD SPECIMEN Ordering Facility: [facility] Address: [address] [place] [address] Performed By: #### R UBIGG #### [facility] CLIA [id number] [address] [place] [address] [place] HBV surface Ag Ser Qlon HBV surface Ag Ql (S) Negative Normal Negative [facility] Comment on above: Order Comment: Speci men Type: BLOOD SPECIMEN Ordering Facility: [facility] Address: [address] [place] [address] Performed By: #### R UBIGG #### [facility] CLIA [id number] [address] [place] [address] [place] HCV Ab Ser Qlon 02-11-2025 HCV Ab Ql (S) Negative Normal Negative [facility] Comment on above: Order Comment: Speci men Type: BLOOD SPECIMEN Ordering Facility: [facility] Address: [address] [place] [address] Result Comment: The result suggests no evidence of infection with Hepatitis C virus. Should recent infection be suspected, repeat testing may be considered 4-6 weeks after this draw. Performed By: #### 1 6128-1 #### [facility] CLIA [id number] [address] [place] [address] [place] HIGH RISK HUMAN PAPILLOMA KAYE (HPV), PCR FOR DETECTION AND GENOTYPINGon 02-11-2025 HPV 16 Ag Ql (Unsp spec) Not detected Normal Not detected [facility] Comment on above: Order Comment: Speci men Type: FLUID SPECIMEN Ordering Facility: [facility] Address: [address] [place] [address] Performed By: #### H PVHRT #### [facility] CLIA [id number] [address] [place] [address] [place] HPV 18 Ag Ql (Unsp spec) Not detected Normal Not detected [facility] Comment on above: Order Comment: Speci men Type: FLUID SPECIMEN Ordering Facility: [facility] Address: [address] [place] [address] Performed By: #### H PVHRT #### [facility] CLIA [id number] [address] [place] [address] [place] HPV 31+33+35+39+45+51+5 2+56+58+59+66+68 DNA AMARI+probe Ql (Cvx) Not detected Normal Not detected [facility] Comment on above: Order Comment: Speci men Type: FLUID SPECIMEN Ordering Facility: [facility] Address: [address] [place] [address] Result Comment: High Risk HPV Other Type includes HPV types 31, 33, 35, 39, 45, 51, 52, 56, 58, 59, 66 and 68. Performed By: #### H PVHRT #### [facility] CLIA [id number] [address] [place] [address] [place] HIV 1+2 Ab IA Qlon 5 HIV 1 and 2 Ab IA.rapid Nom (S/P/Bld) Normal [facility] Comment on above: Order Comment: Speci men Type: BLOOD SPECIMEN Ordering Facility: [facility] Address: [address] [place] [address] Result Comment: Test not indicated. Performed By: #### R UBIGG #### [facility] CLIA [id number] [address] [place] [address] [place] HIV 1+2 Ab+HIV1 p24 Ag IA Ql Non-Reactive Normal Nonreactive [facility] Comment on above: Order Comment: Speci men Type: BLOOD SPECIMEN Ordering Facility: [facility] Address: [address] [place] [address] Performed By: #### R UBIGG #### [facility] CLIA [id number] [address] [place] [address] [place] HIV immunoassay testing algorithm interpretation (S/P/Bld) [Interp] Normal [facility] Comment on above: Order Comment: Speci men Type: BLOOD SPECIMEN Ordering Facility: [facility] Address: [address] [place] [address] Result Comment: No e vidence of HIV-1 or HIV-2 infection. Should recent infection be suspected, repeat testing may be considered 2-3 weeks after this draw. [place] Rev. Code 3701.243(E): This information has been disclosed to you from confidential records protected from disclosure by state law. You shall make no further disclosure of this information without the specific, written, and informed release of the individual to whom it pertains or as otherwise permitted by state law. A general authorization for the release of medical or other information is not sufficient for the purpose of the release of HIV test results or diagnoses. Performed By: #### R UBIGG #### [facility] CLIA [id number] [address] [place] [address] [place] HbA1c (Bld)on 02-11-2025 Average glucose Estimated from glycated hemoglobin (Bld) [Mass/Vol] 94 mg/dL Normal [facility] Comment on above: Order Comment: Speci men Type: BLOOD SPECIMEN Ordering Facility: [facility] Address: [address] [place] [address] Result Comment: eAG: (Estimated average glucose) is a calculated value from HgbA1c and is counter sales representative of the average blood glucose level in the last 2-3 month period. Performed By: #### 5 5454-3 #### [facility] CLIA [id number] [address] [place] [address] [place] HbA1c (Bld) [Mass fraction] 4.9 % Normal 4.3-5.6 [facility] Comment on above: Order Comment: Speci men Type: BLOOD SPECIMEN Ordering Facility: [facility] Address: [address] [place] [address] Result Comment: [place] Diabetes Association guidelines indicate that patients with HgbA1c in the range 5.7-6.4% are at increased risk for development of diabetes, and intervention by lifestyle modification may be beneficial. HgbA1c greater or equal to 6.5% is considered diagnostic of diabetes. Performed By: #### 5 5454-3 #### [facility] CLIA [id number] [address] [place] [address] [place] PAP TESTon 02-11-2025 ADEQUACY Normal [facility] Comment on above: Order Comment: Speci men Type: FLUID SPECIMEN Ordering Facility: [facility] Address: [address] [place] [address] Result Comment: Sati sfactory for interpretation. No endocervical component Performed By: #### L [id number] #### [facility] CLIA [id number] [address] [place] [address] [place] CASE REPORT Normal [facility] Comment on above: Order Comment: Speci men Type: FLUID SPECIMEN Ordering Facility: [facility] Address: [address] [place] [address] Result Comment: Gyne cologic Cytology Report Case: [id number] Authorizing Provider: Megan Moreno APRN.MANAGER ENT Collected: 02/11/2025 09:02 AM Ordering Location: OB/Gynecology Received: 02/11/2025 11:18 AM First Screen: Maria Dolores Driver, CT, ASCP Pathologist: Kvng Farr MD, PhD Specimen: Pap Test, ThinPrep, Cervix Performed By: #### L [id number] #### [facility] CLIA [id number] [address] [place] [address] [place] CLINICAL HISTORY, CYTOLOGY, TIE CARRIER Routine Exam Normal [facility] Comment on above: Order Comment: Speci men Type: FLUID SPECIMEN Ordering Facility: [facility] Address: [address] [place] [address] Performed By: #### L [id number] #### [facility] CLIA [id number] [address] [place] [address] [place] [address] [place] FINAL PERFORMING LAB Normal [facility] Comment on above: Order Comment: Speci men Type: FLUID SPECIMEN Ordering Facility: [facility] Address: [address] [place] [address] Result Comment: Tech nical component, furnace builder screening performed at: [facility], [address] [place] [address] [place] [address] CLIA: [id number] Diagnostic interpretation performed at: [facility], [address] [place] [address] [place] [address] CLIA# [id number] Regional Business Manager: Brent Beckett MD Performed By: #### L [id number] #### [facility] CLIA [id number] [address] [place] [address] [place] [address] [place] INTERPRETATION, CYTOLOGY, TIE CARRIER Abnormal [facility] Comment on above: Order Comment: Speci men Type: FLUID SPECIMEN Ordering Facility: [facility] Address: [address] [place] [address] Result Comment: Atyp ical squamous cells of undetermined significance (ASC-US). at 0947 EDT Performed By: #### L [id number] #### [facility] CLIA [id number] [address] [place] [address] [place] [address] [place] LMP 10/17/2024 Normal [facility] Comment on above: Order Comment: Speci men Type: FLUID SPECIMEN Ordering Facility: [facility] Address: [address] [place] [address] Performed By: #### L [id number] #### [facility] CLIA [id number] [address] [place] PAP DISCLAIMER COMMENT The Pap Smear is a screening test for cervical cancer. False negative results occur with all screening tests, emphasizing the need for rescreening at recommended intervals, and clinical correlation. Normal [facility] Comment on above: Order Comment: Speci men Type: FLUID SPECIMEN Ordering Facility: [facility] Address: [address] [place] [address] Performed By: #### L [id number] #### [facility] CLIA [id number] [address] [place] [address] [place] PAP GENERAL CATEGORIZATION Epithelial Cell Abnormality Normal [facility] Comment on above: Order Comment: Speci men Type: FLUID SPECIMEN Ordering Facility: [facility] Address: [address] [place] [address] Performed By: #### L [id number] #### [facility] CLIA [id number] [address] [place] [address] [place] PAP MILITARY LOGISTICS SPECIALIST COMMENT This specimen has been analyzed by the FDA-approved SandataTM System, which uses digital imaging and an enhanced artificial intelligence image analysis algorithm to identify rowley of interest on the microscopic slide, to assist the java j2ee application developer and pathologist in evaluating cells on ThinPrep Pap tests. Following analysis, rowely of interest on the microscopic slide selected by the algorithm are reviewed by a java j2ee application developer. If a sample requires hierarchical review, the pathologist will review the same rowley of interest selected by the algorithm prior to final interpretation. Normal [facility] Comment on above: Order Comment: Speci men Type: FLUID SPECIMEN Ordering Facility: [facility] Address: [address] [place] [address] Performed By: #### L [id number] #### [facility] CLIA [id number] [address] [place] [address] [place] RUBELLA IGG ANTIBODYon 02-11 RUBELLA IGG AB, QUAL Positive Normal Positive [facility] Comment on above: Order Comment: Speci men Type: BLOOD SPECIMEN Ordering Facility: [facility] Address: [address] [place] [address] Result Comment: The result suggests recent or past exposure to Rubella virus or history of Rubella vaccination. Positive result may also be seen due to presence of passively-transferred antibodies. Please correlate with patient's history. Performed By: #### R UBIGG #### [facility] CLIA [id number] [address] [place] [address] [place] Reagin and Treponema pallidu m IgG and IgM [Interp]on 02-11-2025 T. pallidum IgG+IgM IA Ql (S) Non-Reactive Normal Nonreactive [facility] Comment on above: Order Comment: Speci men Type: BLOOD SPECIMEN Ordering Facility: [facility] Address: [address] [place] [address] Performed By: #### R UBIGG #### [facility] CLIA [id number] [address] [place] [address] [place] Reagin+T pallidum IgG+IgM Se rPl-Impon 02-11-2025 Reagin and Treponema pallidum IgG and IgM [Interp] Cannot exclude recent Treponemal infection if specimen collected within 7-10 days after appearance of suspect lesions or 2-3 weeks after an exposure. Clinical correlation is required. Normal [facility] Comment on above: Order Comment: Speci men Type: BLOOD SPECIMEN Ordering Facility: [facility] Address: [address] [place] [address] Performed By: #### R UBIGG #### [facility] CLIA [id number] [address] [place] [address] [place] TRICHOMONAS VAGINALIS NAATon 02-11-2025 T. vaginalis DNA AMARI+probe Ql (Unsp spec) Not detected Normal Not detected [facility] Comment on above: Order Comment: Speci men Type: BLOOD SPECIMEN Ordering Facility: [facility] Address: [address] [place] [address] Performed By: #### R UBIGG #### [facility] CLIA [id number] [address] [place] [address] [place] TYPE + SCREEN PRENATALon ABO O Normal [facility] Comment on above: Order Comment: Speci men Type: BLOOD SPECIMEN Ordering Facility: [facility] Address: [address] [place] [address] Performed By: #### T SPN #### [facility] CLIA [id number] [address] [place] [address] [place] Rh Nom (Bld) Positive Normal [facility] Comment on above: Order Comment: Speci men Type: BLOOD SPECIMEN Ordering Facility: [facility] Address: [address] [place] [address] Performed By: #### T SPN #### [facility] CLIA [id number] [address] [place] [address] [place] TYPE AND SCREEN EXPIRATION 02/14/2025 23:59 Normal [facility] Comment on above: Order Comment: Speci men Type: BLOOD SPECIMEN Ordering Facility: [facility] Address: [address] [place] [address] Performed By: #### T SPN #### [facility] CLIA [id number] [address] [place] [address] [place] CBC + DIFFon 06-09-2023 Baso # 0.10 x10EE3/UL Normal 0.00 - 0.10 [facility] Comment on above: Performed By: #### 2 [id number] #### [facility],[address] [place] [address] 23973 Basophils/100 WBC (Bld) 1.2 % Normal 0.0 - 2.0 [facility] Comment on above: Performed By: #### 2 91876 #### [facility],[address] [place] [address] 90361 CBC + DIFF Normal [facility] Comment on above: Result Comment: CBC- COMPLETE BLOOD COUNT Performed By: #### 2 39164 #### [facility],[address] [place] [address] 90089 EO # 0.30 x10EE3/UL Normal 0.00 - 0.50 [facility] Comment on above: Performed By: #### 2 52306 #### [facility],[address] [place] [address] 83073 Eosinophils/100 WBC (Bld) 2.7 % Normal 0.0 - 7.0 [facility] Comment on above: Performed By: #### 2 19215 #### [facility],[address] [place], [place] [address] Erythrocyte distribution width (RBC) [Ratio] 15.9 % High 12.0 - 15.6 [facility] Comment on above: Performed By: #### 2 79806 #### [facility],[address] [place] [address] Hematocrit (Bld) [Volume fraction] 24.3 % Low 34.0 - 46.0 [facility] Comment on above: Performed By: #### 2 00897 #### [facility],[address] [place] [address] Hemoglobin (Bld) [Mass/Vol] 7.7 g/dL Low 12.0 - 16.0 [facility] Comment on above: Performed By: #### 2 37544 #### [facility],[address] [place] [address] 21657 Lymph # 2.40 x10EE3/UL Normal 0.80 - 2.80 [facility] Comment on above: Performed By: #### 2 90585 #### [facility],[address] [place] [address] 86764 Lymphocytes/100 WBC (Bld) 23.8 % Normal 20.0 - 45.0 [facility] Comment on above: Performed By: #### 2 21912 #### [facility],[address] [place], [place] [address] MANUAL DIFF N/A Normal [facility] Comment on above: Performed By: #### 2 36213 #### [facility],[address] [place] [address] 78168 MCH (RBC) [Entitic mass] 22 pg Low 27 - 33 [facility] Comment on above: Performed By: #### 2 42199 #### [facility],[address] [place] [address] 66531 MCHC 32 X10 3 Normal 32 - 36 [facility] Comment on above: Performed By: #### 2 31553 #### [facility],[address] [place] [address] 78772 MCV (RBC) [Entitic vol] 70 fL Low 80 - 99 [facility] Comment on above: Performed By: #### 2 28886 #### [facility],[address] [place] [address] 27948 Day # 0.90 x10EE3/UL Normal 0.20 - 1.00 [facility] Comment on above: Performed By: #### 2 39478 #### [facility],[address] [place] [address] 05804 MONOS % 8.9 % Normal 0.0 - 10.0 [facility] Comment on above: Performed By: #### 2 58085 #### [facility],[address] [place] [address] 21459 Morphology Erickson (Bld) [Interp] N/A Normal [facility] Comment on above: Result Comment: {CD] Performed By: #### 2 22840 #### [facility],[address] [place] [address] 78886 Neut # 6.40 x10EE3/UL Normal 1.50 - 7.10 [facility] Comment on above: Performed By: #### 2 33687 #### [facility],[address] [place] [address] 45708 Neutrophils/100 WBC (Bld) 63.4 % Normal 46.0 - 76.0 [facility] Comment on above: Performed By: #### 2 96050 #### [facility],[address] [place] [address] 37443 PLATELET 108 x10EE3/UL Low 150 - 450 [facility] Comment on above: Performed By: #### 2 89144 #### [facility],[address] [place] [address] 87271 Platelet mean volume (Bld) [Entitic vol] 10.2 fL Normal 6.6 - 10.5 [facility] Comment on above: Result Comment: AUTO MATED DIFFERENTIAL Performed By: #### 2 87168 #### [facility],[address] [place] [address] RBC 3.47 x 10EE6/UL Low 4.10 - 5.30 [facility] Comment on above: Performed By: #### 2 65666 #### [facility],[address] [place], [place] [address] WBC 10.0 x 10EE3/UL Normal 4.5 - 10.8 [facility] Comment on above: Performed By: #### 2 40916 #### [facility],[address] [place] [address] BB TYPE & SCREENon 3 ABO O Normal [facility] Comment on above: Performed By: #### 2 01180 #### [facility],[address] [place] [address] ANTIBODY SCR Negative Normal [facility] Comment on above: Performed By: #### 2 31823 #### [facility],[address] [place] [address] BB TYPE & SCREEN Normal [facility] Comment on above: Result Comment: TYPE , Rh, AND SCREEN Performed By: #### 2 03180 #### [facility],[address] [place] [address] Rh Nom (Bld) Positive Normal [facility] Comment on above: Performed By: #### 2 74887 #### [facility],[address] [place] [address] CBC + DIFFon 06-08-2023 Baso # 0.10 x10EE3/UL Normal 0.00 - 0.10 [facility] Comment on above: Performed By: #### 2 28775 #### [facility],[address] [place], [place] [address] Basophils/100 WBC (Bld) 0.7 % Normal 0.0 - 2.0 [facility] Comment on above: Performed By: #### 2 19679 #### [facility],[address] [place] [address] CBC + DIFF Normal [facility] Comment on above: Result Comment: CBC- COMPLETE BLOOD COUNT Performed By: #### 2 22366 #### [facility],[address] [place] [address] EO # 0.20 x10EE3/UL Normal 0.00 - 0.50 [facility] Comment on above: Performed By: #### 2 60191 #### [facility],[address] [place] [address] Eosinophils/100 WBC (Bld) 2.0 % Normal 0.0 - 7.0 [facility] Comment on above: Performed By: #### 2 42255 #### [facility],[address] [place] [address] Erythrocyte distribution width (RBC) [Ratio] 15.7 % High 12.0 - 15.6 [facility] Comment on above: Performed By: #### 2 22563 #### [facility],[address] [place] [address] Hematocrit (Bld) [Volume fraction] 29.7 % Low 34.0 - 46.0 [facility] Comment on above: Performed By: #### 2 49372 #### [facility],[address] [place] [address] Hemoglobin (Bld) [Mass/Vol] 9.2 g/dL Low 12.0 - 16.0 [facility] Comment on above: Performed By: #### 2 27021 #### [facility],[address] [place] [address] Lymph # 2.10 x10EE3/UL Normal 0.80 - 2.80 [facility] Comment on above: Performed By: #### 2 97957 #### [facility],[address] [place] [address] Lymphocytes/100 WBC (Bld) 19.4 % Low 20.0 - 45.0 [facility] Comment on above: Performed By: #### 2 32699 #### [facility],[address] [place], [place] [id number] MANUAL DIFF N/A Normal [facility] Comment on above: Performed By: #### 2 32044 #### [facility],[address] [place], [place] [address] MCH (RBC) [Entitic mass] 22 pg Low 27 - 33 [facility] Comment on above: Performed By: #### 2 81046 #### [facility],[address] [place], [place] [address] MCHC 31 X10 3 Low 32 - 36 [facility] Comment on above: Performed By: #### 2 98412 #### [facility],[address] [place], [place] [address] MCV (RBC) [Entitic vol] 72 fL Low 80 - 99 [facility] Comment on above: Performed By: #### 2 84362 #### [facility],[address] [place], [place] [id number] MICROCYTES 1+ Normal [facility] Comment on above: Performed By: #### 2 88606 #### [facility],[address] [place] [address] 05926 Day # 0.60 x10EE3/UL Normal 0.20 - 1.00 [facility] Comment on above: Performed By: #### 2 42973 #### [facility],[address] [place] [address] 43561 MONOS % 6.0 % Normal 0.0 - 10.0 [facility] Comment on above: Performed By: #### 2 14597 #### [facility],[address] [place], [place] [address] Morphology Erickson (Bld) [Interp] SEE BELOW [facility] Comment on above: Performed By: #### 2 92011 #### [facility],[address] [place] [address] Neut # 7.70 x10EE3/UL High 1.50 - 7.10 [facility] Comment on above: Performed By: #### 2 83683 #### [facility],[address] [place] [address] Neutrophils/100 WBC (Bld) 71.9 % Normal 46.0 - 76.0 [facility] Comment on above: Performed By: #### 2 96568 #### [facility],[address] [place] [address] PLATELET 132 x10EE3/UL Low 150 - 450 [facility] Comment on above: Performed By: #### 2 58381 #### [facility],[address] [place] [address] Platelet mean volume (Bld) [Entitic vol] 11.5 fL High 6.6 - 10.5 [facility] Comment on above: Result Comment: AUTO MATED DIFFERENTIAL Performed By: #### 2 71171 #### [facility],[address] [place] [address] PLT EST NORMAL Normal [facility] Comment on above: Performed By: #### 2 59644 #### [facility],[address] [place] [address] POIKILO 2+ [facility] Comment on above: Performed By: #### 2 50812 #### [facility],[address] [place] [address] RBC 4.13 x 10EE6/UL Normal 4.10 - 5.30 [facility] Comment on above: Performed By: #### 2 53643 #### [facility],[address] [place] [address] WBC 10.7 x 10EE3/UL Normal 4.5 - 10.8 [facility] Comment on above: Performed By: #### 2 55510 #### [facility],[address] [place] [address] Other LG&GIANT PLTS SEEN Normal [facility] Comment on above: Result Comment: ROUL EAUX SEEN,ELLIPTOCYTES 2+,ECHINOCYTES1 {CD] Performed By: #### 2 12216 #### [facility],[address] [place] [address] Laboratory - Urinalysison Glucose Test strip (U) [Mass/Vol] Negative Normal [facility] [employer] [employer] Protein Ql (U) Negative Normal [facility] [employer] [facility] Laboratory - Chemistry and C hemistry - challengeon 05-27-2023 Creatinine [Mass/Vol] 140.56 mg/dL Normal [facility], [facility].; [employer] [employer] Protein (24H U) [Mass/Vol] 42.10 mg/dL Abnormal 0.00 - 10.00 mg/dL [facility], [facility].; [facility], [facility]. Laboratory - Urinalysison Glucose Test strip (U) [Mass/Vol] Negative Normal [employer], [employer] Protein Ql (U) 30 mg/dL Abnormal [facility] [employer], [employer] URINE CREATININE AND PROTEIN RATIOon 05-27-2023 CREATININE UR 140.56 mg/dl Normal [facility] Comment on above: Performed By: #### 2 49218 #### [facility],[address] [place] [address] PC RATIO 0.30 mg/dL Normal 0.00 - 10.00 [facility]; [facility], [facility] Comment on above: Performed By: #### 2 02472 #### [place] [address] Protein (U) [Mass/Vol] 42.10 mg/dL High 0.00 - 10.00 [facility] Comment on above: Performed By: #### 2 87382 #### [place] [address] Laboratory - Hematology and Cell countson 05-20-2023 Hemoglobin (Bld) [Mass/Vol] 9.0 g/dL Abnormal 11.5 - 14.2 g/dL [facility], [facility]. Laboratory - Urinalysison Glucose Test strip (U) [Mass/Vol] Negative Normal [facility].; [facility], [facility] Protein Ql (U) Negative Normal [facility], [facility].; [facility], [facility]. CBC + DIFFon 05-16-2023 Baso # 0.10 x10EE3/UL Normal 0.00 - 0.10 [facility] Comment on above: Performed By: #### 2 74070 #### [place] [address] Basophils/100 WBC (Bld) 0.7 % Normal 0.0 - 2.0 [facility] Comment on above: Performed By: #### 2 55070 #### [place] [address] CBC + DIFF Normal [facility] Comment on above: Result Comment: CBC- COMPLETE BLOOD COUNT Performed By: #### 2 88212 #### [place] [address] EO # 0.00 x10EE3/UL Normal 0.00 - 0.50 [facility] Comment on above: Performed By: #### 2 80694 #### [facility],[address] [place], [place] [id number] Eosinophils/100 WBC (Bld) 0.2 % Normal 0.0 - 7.0 [facility] Comment on above: Performed By: #### 2 77451 #### [facility],[address] [place] [address] Erythrocyte distribution width (RBC) [Ratio] 14.7 % Normal 12.0 - 15.6 [facility] Comment on above: Performed By: #### 2 16020 #### [facility],[address] [place] [address] Hematocrit (Bld) [Volume fraction] 28.4 % Low 34.0 - 46.0 [facility] Comment on above: Performed By: #### 2 93535 #### [facility],[address] [place] [address] Hemoglobin (Bld) [Mass/Vol] 9.0 g/dL Low 12.0 - 16.0 [facility] Comment on above: Performed By: #### 2 54637 #### [facility],[address] [place] [address] 27905 Lymph # 1.20 x10EE3/UL Normal 0.80 - 2.80 [facility] Comment on above: Performed By: #### 2 17599 #### [facility],[address] [place], [place] [id number] Lymphocytes/100 WBC (Bld) 12.3 % Low 20.0 - 45.0 [facility] Comment on above: Performed By: #### 2 49113 #### [facility],[address] [place], [place] [id number] MANUAL DIFF N/A Normal [facility] Comment on above: Performed By: #### 2 06814 #### [facility],[address] [place] [address] MCH (RBC) [Entitic mass] 24 pg Low 27 - 33 [facility] Comment on above: Performed By: #### 2 73924 #### [facility],[address] [place] [address] MCHC 32 X10 3 Normal 32 - 36 [facility] Comment on above: Performed By: #### 2 29729 #### [facility],[address] [place] [address] MCV (RBC) [Entitic vol] 75 fL Low 80 - 99 [facility] Comment on above: Performed By: #### 2 07066 #### [facility],[address] [place] [address] Day # 0.90 x10EE3/UL Normal 0.20 - 1.00 [facility] Comment on above: Performed By: #### 2 89436 #### [facility],[address] [place] [address] MONOS % 9.7 % Normal 0.0 - 10.0 [facility] Comment on above: Performed By: #### 2 33219 #### [facility],[address] [place] [address] Morphology Erickson (Bld) [Interp] N/A Normal [facility] Comment on above: Result Comment: {CD] Performed By: #### 2 33736 #### [facility],[address] [place] [address] Neut # 7.20 x10EE3/UL High 1.50 - 7.10 [facility] Comment on above: Performed By: #### 2 79477 #### [place] [address] Neutrophils/100 WBC (Bld) 77.1 % High 46.0 - 76.0 [facility] Comment on above: Performed By: #### 2 35005 #### [facility],[address] [place] [address] 13291 PLATELET 145 x10EE3/UL Low 150 - 450 [facility] Comment on above: Performed By: #### 2 48279 #### [facility],[address] [place] [address] 61825 Platelet mean volume (Bld) [Entitic vol] 9.0 fL Normal 6.6 - 10.5 [facility] Comment on above: Result Comment: AUTO MATED DIFFERENTIAL Performed By: #### 2 38476 #### [facility],[address] [place] [address] 52529 RBC 3.77 x 10EE6/UL Low 4.10 - 5.30 [facility] Comment on above: Performed By: #### 2 40189 #### [facility],[address] [place] [address] 29872 WBC 9.4 x 10EE3/UL Normal 4.5 - 10.8 [facility] Comment on above: Performed By: #### 2 81093 #### [facility],[address] [place] [address] 43040 CMP with eGFRon 05-16-2023 AGE 27 years Normal [facility] Comment on above: Performed By: #### 2 90180 #### [facility],[address] [place] [address] 18143 Albumin [Mass/Vol] 2.5 g/dL Low 3.4 - 5.0 [facility] Comment on above: Performed By: #### 2 87330 #### [facility],[address] [place] [address] 35049 Albumin/Globulin [Mass ratio] 0.6 {ratio} Low 0.9 - 1.6 [facility] Comment on above: Performed By: #### 2 27376 #### [facility],[address] [place] [address] 83778 ALK PHOS 168 U/L High 46 - 116 [facility] Comment on above: Performed By: #### 2 99235 #### [facility],[address] [place] [address] 99617 ALT [Catalytic activity/Vol] 15 U/L Normal 14 - 59 [facility] Comment on above: Performed By: #### 2 21396 #### [facility],[address] [place] [address] 69275 Anion gap [Moles/Vol] 16 mmol/L Normal 10 - 20 [facility] Comment on above: Performed By: #### 2 68130 #### [facility],[address] [place] [address] 43778 AST [Catalytic activity/Vol] 19 U/L Normal 13 - 39 [facility] Comment on above: Performed By: #### 2 47308 #### [facility],[address] [place] [address] 24437 B/C RATIO 8 ratio Normal 0 - 30 [facility] Comment on above: Performed By: #### 2 85431 #### [facility],[address] [place] [address] 57627 Bilirubin [Mass/Vol] 0.6 mg/dL Normal 0.2 - 1.0 [facility] Comment on above: Performed By: #### 2 45135 #### [facility],[address] [place] [address] 15614 Calcium [Mass/Vol] 9.0 mg/dL Normal 8.5 - 10.1 [facility] Comment on above: Performed By: #### 2 10190 #### [facility],[address] [place] [address] 34282 Chloride [Moles/Vol] 101 mmol/L Normal 98 - 107 [facility] Comment on above: Performed By: #### 2 84706 #### [facility],[address] [place] [address] 52663 CMP with eGFR Normal [facility] Comment on above: Result Comment: COMP REHENSIVE METABOLIC PANEL Performed By: #### 2 20785 #### [facility],[address] [place] [address] 28418 CO2 [Moles/Vol] 22.8 mmol/L Normal 21.0 - 32.0 [facility] Comment on above: Performed By: #### 2 75405 #### [facility],[address] [place] [address] 88614 Creatinine [Mass/Vol] 0.48 mg/dL Low 0.55 - 1.02 [facility] Comment on above: Performed By: #### 2 60113 #### [facility],[address] [place] [address] 33049 GFR/1.73 sq M.predicted among non-blacks MDRD (S/P/Bld) [Vol rate/Area] mL/min/{1.73_m2} Normal 60 - 999 [facility] Comment on above: Performed By: #### 2 55569 #### [facility],[address] [place] [address] 86753 Result Comment: ACCO RDING TO THE NATIONAL KIDNEY DISEASE EDUCATION PROGRAM(NKDE), A NORMAL eGFR IS A VALUE GREATER THAN OR EQUAL TO 60 ML/MIN/1.73 SQ METERS. CHRONIC KIDNEY DISEASE: <60mL/MIN/1.73 SQ METERS KIDNEY FAILURE: <15mL/MIN/1.73 SQ METERS THIS TEST SHOULD ONLY BE USED FOR PATIENTS 18 YEARS OF AGE AND OLDER. Globulin (S) [Mass/Vol] 4.0 g/dL High 1.5 - 3.8 [facility] Comment on above: Performed By: #### 2 74378 #### [facility],[address] [place] [address] 04889 Glucose [Mass/Vol] 73 mg/dL Low 74 - 106 [facility] Comment on above: Performed By: #### 2 86788 #### [facility],[address] [place] [address] 78202 Potassium [Moles/Vol] 3.5 mmol/L Normal 3.5 - 5.1 [facility] Comment on above: Performed By: #### 2 94816 #### [facility],[address] [place] [address] 88361 Protein [Mass/Vol] 6.5 g/dL Normal 6.4 - 8.2 [facility] Comment on above: Performed By: #### 2 88362 #### [facility],[address] [place] [address] 95622 Sodium [Moles/Vol] 136 mmol/L Normal 136 - 145 [facility] Comment on above: Performed By: #### 2 48359 #### [facility],[address] [place] [address] 56728 Urea nitrogen [Mass/Vol] 4 mg/dL Low 7 - 18 [facility] Comment on above: Performed By: #### 2 54018 #### [facility],[address] [place], [place] [address] CORONAVIRUS (SARS) ANTIGEN T ESTon 05-16-2023 EXTERNAL QC DONE? YES Normal [facility] Comment on above: Performed By: #### 2 75220 #### [facility],[address] [place] [address] 67857 INTERNAL CONTROL PASS Normal [facility] Comment on above: Performed By: #### 2 58348 #### [facility],[address] [place] [address] 40257 SARS ANTIGEN Positive Abnormal NORMAL: NEGATIVE [facility] Comment on above: Result Comment: { CA LLED TO JOE,05/16/23,12:45,KLS { READ BACK BY JOE Performed By: #### 2 20538 #### [facility],[address] [place] [address] 20973 SEND TO ? YES Normal [facility] Comment on above: Result Comment: SARS -CoV-2 THIS TEST IS BEING USED UNDER THE FDA EUA PROCEDURE. THIS ASSAY HAS BEEN VALIDATED [facility] FOR USE WITH NASAL AND NASOPHARYNGEAL SWAB SPECIMENS. INTERPRETIVE DATA TEST RESULTS SHOULD ALWAYS BE CONSIDERED IN THE CONTEXT OF CLINICAL OBSERVATIONS AND EPIDEMIOLOGICAL DATA IN MAKING FINAL DIAGNOSIS AND PATIENT MANAGEMENT DECISIONS. PATIENT MANAGEMENT SHOULD FOLLOW CURRENT CDC GUIDELINES. THE KARSON SARS ANTIGEN BRANDYN DOES NOT DIFFERENTIATE BETWEEN SARS-CoV & SARS-CoV-2. A POSITIVE TEST RESULT INDICATES THE PRESENCE OF SARS-CoV-2 NUCLEOCAPSID PROTEIN ANTIGEN, AND THE PATIENT IS INFECTED WITH THE VIRUS AND PRESUMED TO BE CONTAGIOUS. A NEGATIVE TEST RESULT FOR THIS TEST MEANS THAT SARS-CoV-2 NUCLEOCAPSID PROTEIN ANTIGEN WAS NOT PRESENT IN THE SPECIMEN ABOVE THE LIMIT OF DETECTION. HOWEVER, A NEGATIVE RESULT DOES NOT RULE OUT COVID-19 AND SHOULD NOT BE USED THE SOLE BASIS FOR TREATMENT OR PATIENT MANAGEMENT DECISIONS. A NEGATIVE RESULT DOES NOT EXCLUDE THE POSSIBILITY OF COVID-19. NEGATIVE RESULTS, FROM PATIENTS WITH SYMPTOM ONSET BEYOND FIVE DAYS, SHOULD BE TREATED PRESUMPTIVE AND CONFIRMATION WITH A MOLECULAR ASSAY, IF NECESSARY, FOR PATIENT MANAGEMENT, MAY BE PERFORMED. WHEN DIAGNOSTIC TESTING IS NEGATIVE, THE POSSIBLILTY OF A FALSE NEGATIVE RESULT SHOULD BE CONSIDERED IN THE CONTEXT OF A PATIENT'S RECENT EXPOSURES AND THE PRESENCE OF CLINICAL SIGNS AND SYMPTOMS CONSISTENT WITH COVID-19. THE POSSIBILITY OF A FALSE NEGATIVE RESULT SHOULD ESPECIALLY BE CONSIDERED IF THE PATIENT'S RECENT EXPOSURES OR CLINICAL PRESENTATION INDICATE THAT COVID-19 IS LIKELY, AND DIAGNOSTIC TESTS FOR OTHER CAUSES OF ILLNESS (e.g., OTHER RESPIRATORY ILLNESS) ARE NEGATIVE. IF COVID-19 IS STILL SUSPECTED BASED ON EXPOSURE HISTORY TOGETHER WITH OTHER CLINICAL FINDINGS, RE-TESTING SHOULD BE CONSIDERED BY HEALTHCARE PROVIDERS IN CONSULTATION WITH PUBLIC HEALTH AUTHORITIES. Performed By: #### 2 92695 #### [facility],[address] [place] [address] CT CHEST (PE PROTOCOL)on CT CHEST (PE PROTOCOL) [place] [address] Patient: AMINATA NOLASCO Phone#: : 1995 Age: 27 Gender: F Pt. Type: ER Account: [id number] Location: [facility] Ordering: [employer] Exam Date: 05/16/2023/13:45 Family Phys: Charge Code: 446251 Physician: Summers Order #: [id number] Dose#: 5.5 mGy PROCEDURE: CT CHEST WITH CONTRAST FOR PE COMPARISON: None. INDICATIONS: Chest pain. TECHNIQUE: After obtaining the patient's consent, CT images were obtained with non-ionic intravenous contrast material. Multi-planar images were created to optimize visualization of vascular anatomy with MPR/MIPS and 3D imaging. All CT scans at this facility use dose modulation, iterative reconstruction, and/or weight based dosing when appropriate to reduce radiation dose to as low as reasonably achievable. IV CONTRAST: No IV contrast used,0ml TOTAL DOSE: 5.5 CTDIvol(mGy) FINDINGS: VASCULATURE: No pulmonary embolism AORTA: No aortic aneurysm. LUNGS: Respiratory motion limits the evaluation. There is atelectasis in the left lobe. No within limits of respiratory motion no appreciable focal infiltrate. BRIAN: There are reactive hilar lymph nodes. MEDIASTINUM: Normal. No mass or adenopathy. CARDIAC: Normal. No enlargement, pericardial thickening, or significant calcification. PLEURA: Trace bilateral pleural effusions. CHEST WALL: Normal. No mass or axillary adenopathy. LIMITED ABDOMEN: Normal. Limited images of the upper abdomen are unremarkable. 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 Vertebral bodies are maintained in height and alignment. OTHER: Negative. CONCLUSION: 1. No pulmonary embolism. 2. Trace bilateral pleural effusion [place] [address] Patient: AMINATA NOLASCO Phone#: : 1995 Age: 27 Gender: F Pt. Type: ER Account: [id number] Location: [facility] Ordering: [employer] Exam Date: 05/16/2023/13:45 Family Phys: Charge Code: 389267 Physician: Summers Order #: [id number] Dose#: 5.5 mGy Dictated by: Elin Sanchez MD on 05/16/2023 at 14:15 Approved by: Elin Sanchez MD on 05/16/2023 at 14:22 [facility] CULTURE BLOOD [LINDSEY]on Microscopic examination of blood, culture CULTURE BLOOD [LINDSEY] _BLOOD CULTURE_ GO TO [facility] REPORTS AND ATTACHMENTS FOR SCANNED REPORT 05/22/[email or web address] PLETE Normal [facility] Comment on above: Performed By: #### 2 18896 #### [facility],[address] [place] [address] 69348 D-DIMER, QUANTITATIVEon 12-0 D-DIMER QUANT 533 ng/ml High 0 - 230 [facility] Comment on above: Performed By: #### 2 11003 #### [facility],[address] [place] [address] 11991 D-DIMER, QUANTITATIVE Normal [facility] Comment on above: Result Comment: DAMION T D-DIMER Performed By: #### 2 73687 #### [facility],[address] [place] [address] 29954 GROUP B STREP BY PCR (POM)on 05-16-2023 GBS Positive Abnormal [facility] Comment on above: Result Comment: GROU P B STREPTOCOCCUS(GBS) THIS ASSAY HAS BEEN VALIDATED IN THE [facility] FOR USE WITH VAGINAL- RECTAL SWAB SPECIMENS. INTERPRETIVE DATA TEST RESULTS SHOULD BE INTERPRETED IN CONJUNCTION WITH OTHER LABORATORY AND CLINICAL DATA. A POSITIVE TEST RESULT FOR GROUP B STREPTOCOCCUS(GBS)INDICATES THAT BACTERIAL NUCLEIC ACIDS FROM GROUP B STREPTOCOCCUS(GBS)WERE DETECTED. A NEGATIVE TEST RESULT FOR THIS TEST MEANS THAT BACTERIAL NUCLEIC ACIDS FROM GROUP B STREPTOCOCCUS(GBS)WERE NOT PRESENT IN THE SPECIMEN ABOVE THE LIMIT OF DETECTION. WHEN DIAGNOSTIC TESTING IS NEGATIVE, THE POSSIBLILTY OF A FALSE NEGATIVE RESULT SHOULD BE CONSIDERED IN THE CONTEXT OF A PATIENT'S CLINICAL SIGNS AND SYMPTOMS CONSISTENT WITH GROUP B STREPTOCOCCUS(GBS). THERE IS A RISK OF FALSE NEGATIVE RESULTS DUE TO IMPROPERLY COLLECTED, TRANSPORTED, OR HANDLED SWAB SAMPLES. THERE IS A RISK OF FALSE NEGATIVE RESULTS DUE TO THE PRESENCE OF SEQUENCE VARIANTS IN THE TARGETS OF THE ASSAY, PROCEDURAL ERRORS, AMPLIFICATION INHIBITORS IN SAMPLES, OR INADEQUATE NUMBERS OF ORGANISM(S) FOR AMPLIFICATION. THERE IS A RISK OF FALSE POSITIVE RESULTS DUE TO POTENTIAL CROSS-CONTAMINATION BY TARGET ORGANISM(S), THEIR NUCLEIC ACID OR AMPLIFIED PRODUCT, OR FROM NON- SPECIFIC SIGNALS IN THE ASSAY. ADDITIONAL FOLLOW-UP TESTING BY CULTURE IS REQUIRED IF THE KAREN GROUP B STREPTOCOCCUS(GBS)RESULT IS NEGATIVE AND CLINICAL SYMPTOMS PERSIST. Performed By: #### 2 47538 #### [place] [address] INFLUENZA VIRUS RAPID A/Bon 05-16-2023 INFLUENZA VIRUS RAPID A/B INFLUENZA A NEGATIVE INFLUENZA B NEGATIVE INTERNAL NEG QC PASS INTERNAL POS QC PASS EXTERNAL QC DONE? YES SEND TO ? YES A NEGATIVE TEST RESULT DOES NOT EXCLUDE INFECTION WITH INFLUENZA A OR B. THEREFORE, THE RESULTS OBTAINED FROM THIS FLU TEST SHOULD BE USED IN CONJUCTION WITH CLINICAL FINDINGS TO MAKE AN ACCURATE DIAGNOSIS. A POSITIVE RESULT DOES NOT RULE OUT CO-INFECTIONS WITH OTHER PATHOGENS OR IDENTIFY ANY SPECIFIC INFLUENZA A VIRUS SUBTYPE.CO-INFECTION WITH INFLUENZA A AND B IS RARE. IT IS RECOMMENDED THAT DUAL POSITIVE RESULTS BE CONFIRMED BY VIRAL CULTURE OR AN FDA-CLEARED INFLUENZA A AND B MOLECULAR ASSAY. INDIVIDUALS WHO HAVE RECEIVED NASALLY ADMINISTERED INFLUENZA A VACCINE MAY TEST POSITIVE IN COMMERCIALLY AVAILABLE INFLUENZA RAPID DIAGNOSTIC TESTS FOR UP TO THREE DAYS. RESULT CRITICAL? NO [facility] Comment on above: Performed By: #### 2 23146 #### [facility],[address] [place] [address] LACTATEon 05-16-2023 Lactate [Moles/Vol] 0.6 mmol/L Normal 0.4 - 2.0 [facility] Comment on above: Performed By: #### 2 22329 #### [place] [address] URINALYSISon 05-16-2023 Amorphous NONE Normal [facility] Comment on above: Performed By: #### 2 45108 #### [place] [address] Bacteria 2+ Normal [facility] Comment on above: Performed By: #### 2 20803 #### [place] [address] Bilirubin Ql (U) Negative Normal NORMAL: NEGATIVE [facility] Comment on above: Performed By: #### 2 96263 #### [place] [address] Casts NONE Normal [facility] Comment on above: Performed By: #### 2 98767 #### [facility],[address] [place] [address] 49643 Clarity (U) sl.cloudy Normal NORMAL: CLEAR [facility] Comment on above: Performed By: #### 2 46884 #### [facility],[address] [place] [address] 00188 Color (U) john Normal NORMAL: YELLOW [facility] Comment on above: Performed By: #### 2 39893 #### [facility],[address] [place] [address] 12062 Crystals LM Nom (Urine sed) NONE Normal [facility] Comment on above: Performed By: #### 2 55202 #### [facility],[address] [place] [address] 85552 Epi Cells MANY Normal [facility] Comment on above: Performed By: #### 2 88491 #### [facility],[address] [place] [address] 08415 Glucose Ql (U) NORM Normal NORMAL: NORMAL [facility] Comment on above: Performed By: #### 2 58613 #### [facility],[address] [place] [address] 64097 Hemoglobin Ql (U) 10 Abnormal NORMAL: NEGATIVE [facility] Comment on above: Performed By: #### 2 95040 #### [facility],[address] [place] [address] 60571 Ketone 150 Abnormal NORMAL: NEGATIVE [facility] Comment on above: Performed By: #### 2 87150 #### [facility],[address] [place] [address] 84586 Leukocytes 100 Abnormal NORMAL: NEGATIVE [facility] Comment on above: Performed By: #### 2 55788 #### [facility],[address] [place] [address] 05949 Mucous 2+ Normal [facility] Comment on above: Performed By: #### 2 72119 #### [facility],[address] [place] [address] Nitrite Ql (U) Negative Normal NORMAL: NEGATIVE [facility] Comment on above: Performed By: #### 2 29240 #### [facility],[address] [place] [address] pH (U) 6 [pH] Normal NORMAL: 5.0-8.0 [facility] Comment on above: Performed By: #### 2 33124 #### [facility],[address] [place] [address] Protein Ql (U) 30 Abnormal NORMAL: NEGATIVE [facility] Comment on above: Performed By: #### 2 01891 #### [facility],[address] [place] [address] Rbc 0-5 Normal 0-3/hpf [facility] Comment on above: Performed By: #### 2 43573 #### [facility],[address] [place] [address] Sp [place] 1.025 Normal NORMAL: 1.010-1.030 [facility] Comment on above: Performed By: #### 2 53157 #### [facility],[address] [place] [address] Specimen Type UNSPECIFIED Normal [facility] Comment on above: Performed By: #### 2 06950 #### [facility],[address] [place] [address] Urinalysis dipstick W Reflex Microscopic panel (U) SEE BELOW Normal [facility] Comment on above: Result Comment: MICR OSCOPIC Performed By: #### 2 36029 #### [facility],[address] [place] [address] Urobilinog 1 Abnormal NORMAL: NORMAL [facility] Comment on above: Performed By: #### 2 34378 #### [facility],[address] [place], [place] [address] Wbc 6-10 Normal 0-5/hpf [facility] Comment on above: Performed By: #### 2 87820 #### [facility],[address] [place] [address] Yeast NONE Normal [facility] Comment on above: Performed By: #### 2 03676 #### [facility],[address] [place] [address] ACTIM PROMon 05-14-2023 ACTIM PROM Negative Normal NORMAL: NEGATIVE [facility] Comment on above: Performed By: #### 2 89019 #### [facility],[address] [place] [address] EXTERNAL QC DONE? YES Normal [facility] Comment on above: Result Comment: Acti m PROM is a rapid immunoassay that specifically detects Insulin-like Growth Factor Binding Protein-1 (IGFBP-1). IGFBP-1 levels in amniotic fluid rise in early and remain high until term. When the membranes are ruptured, IGFBP-1 is detectable in a vaginal sample. Performed By: #### 2 07663 #### [facility],[address] [place] [address] INTERNAL NEG QC PASS Normal [facility] Comment on above: Performed By: #### 2 26747 #### [facility],[address] [place] [address] INTERNAL POS QC PASS Normal [facility] Comment on above: Performed By: #### 2 39319 #### [facility],[address] [place] [address] CBC + DIFFon 05-14-2023 Baso # 0.00 x10EE3/UL Normal 0.00 - 0.10 [facility] Comment on above: Performed By: #### 2 16551 #### [facility],[address] [place] [address] Basophils/100 WBC (Bld) 0.5 % Normal 0.0 - 2.0 [facility] Comment on above: Performed By: #### 2 93635 #### [facility],[address] [place] [address] 14320 CBC + DIFF Normal [facility] Comment on above: Result Comment: CBC- COMPLETE BLOOD COUNT Performed By: #### 2 57942 #### [facility],[address] [place] [address] 64375 EO # 0.00 x10EE3/UL Normal 0.00 - 0.50 [facility] Comment on above: Performed By: #### 2 66557 #### [facility],[address] [place] [address] 26392 Eosinophils/100 WBC (Bld) 0.5 % Normal 0.0 - 7.0 [facility] Comment on above: Performed By: #### 2 50803 #### [facility],[address] [place] [address] Erythrocyte distribution width (RBC) [Ratio] 14.8 % Normal 12.0 - 15.6 [facility] Comment on above: Performed By: #### 2 31065 #### [facility],[address] [place], [place] [id number] Hematocrit (Bld) [Volume fraction] 30.7 % Low 34.0 - 46.0 [facility] Comment on above: Performed By: #### 2 59568 #### [facility],[address] [place] [address] 04703 Hemoglobin (Bld) [Mass/Vol] 9.6 g/dL Low 12.0 - 16.0 [facility] Comment on above: Performed By: #### 2 80575 #### [facility],[address] [place] [address] 15564 Lymph # 0.60 x10EE3/UL Low 0.80 - 2.80 [facility] Comment on above: Performed By: #### 2 72130 #### [facility],[address] [place], [place] [id number] Lymphocytes/100 WBC (Bld) 6.1 % Low 20.0 - 45.0 [facility] Comment on above: Performed By: #### 2 70911 #### [facility],[address] [place] [address] MANUAL DIFF N/A Normal [facility] Comment on above: Performed By: #### 2 82871 #### [facility],[address] [place] [address] MCH (RBC) [Entitic mass] 24 pg Low 27 - 33 [facility] Comment on above: Performed By: #### 2 16879 #### [facility],[address] [place] [address] MCHC 31 X10 3 Low 32 - 36 [facility] Comment on above: Performed By: #### 2 09291 #### [place] [address] MCV (RBC) [Entitic vol] 76 fL Low 80 - 99 [facility] Comment on above: Performed By: #### 2 37426 #### [place] [address] Day # 0.80 x10EE3/UL Normal 0.20 - 1.00 [facility] Comment on above: Performed By: #### 2 67691 #### [facility],[address] [place] [address] MONOS % 7.8 % Normal 0.0 - 10.0 [facility] Comment on above: Performed By: #### 2 23827 #### [place] [id number] Morphology Erickson (Bld) [Interp] N/A Normal [facility] Comment on above: Result Comment: {CD] Performed By: #### 2 15635 #### [place] [address] Neut # 8.20 x10EE3/UL High 1.50 - 7.10 [facility] Comment on above: Performed By: #### 2 22534 #### [facility],[address] [place] [address] 21815 Neutrophils/100 WBC (Bld) 85.1 % High 46.0 - 76.0 [facility] Comment on above: Performed By: #### 2 14618 #### [facility],[address] [place] [address] 36823 PLATELET 165 x10EE3/UL Normal 150 - 450 [facility] Comment on above: Performed By: #### 2 56018 #### [facility],[address] [place], [place] [phone] Platelet mean volume (Bld) [Entitic vol] 9.5 fL Normal 6.6 - 10.5 [facility] Comment on above: Result Comment: AUTO MATED DIFFERENTIAL Performed By: #### 2 14907 #### [facility],[address] [place], [place] [id number] RBC 4.03 x 10EE6/UL Low 4.10 - 5.30 [facility] Comment on above: Performed By: #### 2 93105 #### [facility],[address] [place], [place] [id number] WBC 9.6 x 10EE3/UL Normal 4.5 - 10.8 [facility] Comment on above: Performed By: #### 2 80624 #### [facility],[address] [place] [address] 28771 CMP with eGFRon 05-14-2023 AGE 27 years Normal [facility] Comment on above: Performed By: #### 2 66676 #### [address] [address] Albumin [Mass/Vol] 2.6 g/dL Low 3.4 - 5.0 [facility] Comment on above: Performed By: #### 2 76781 #### [facility],[address],[place] [address] Albumin/Globulin [Mass ratio] 0.6 {ratio} Low 0.9 - 1.6 [facility] Comment on above: Performed By: #### 2 42421 #### [facility],[address] [place] [address] 42673 ALK PHOS 176 U/L High 46 - 116 [facility] Comment on above: Performed By: #### 2 50632 #### [facility],[address] [place] [address] 80761 ALT [Catalytic activity/Vol] 18 U/L Normal 14 - 59 [facility] Comment on above: Performed By: #### 2 20748 #### [facility],[address] [place] [address] 85487 Anion gap [Moles/Vol] 22 mmol/L High 10 - 20 [facility] Comment on above: Performed By: #### 2 38683 #### [facility],[address] [place] [address] 91138 AST [Catalytic activity/Vol] 27 U/L Normal 13 - 39 [facility] Comment on above: Performed By: #### 2 58019 #### [facility],[address] [place] [address] 46316 B/C RATIO 9 ratio Normal 0 - 30 [facility] Comment on above: Performed By: #### 2 92853 #### [facility],[address] [place] [address] 90298 Bilirubin [Mass/Vol] 0.9 mg/dL Normal 0.2 - 1.0 [facility] Comment on above: Performed By: #### 2 64373 #### [facility],[address] [place] [address] 16516 Calcium [Mass/Vol] 8.9 mg/dL Normal 8.5 - 10.1 [facility] Comment on above: Performed By: #### 2 67196 #### [facility],[address] [place], [place] [phone] Chloride [Moles/Vol] 97 mmol/L Low 98 - 107 [facility] Comment on above: Performed By: #### 2 82777 #### [facility],[address] [place] [address] 38749 CMP with eGFR Normal [facility] Comment on above: Result Comment: COMP REHENSIVE METABOLIC PANEL Performed By: #### 2 40637 #### [facility],[address] [place] [address] CO2 [Moles/Vol] 17.5 mmol/L Low 21.0 - 32.0 [facility] Comment on above: Performed By: #### 2 28338 #### [facility],[address] [place] [address] Creatinine [Mass/Vol] 0.70 mg/dL Normal 0.55 - 1.02 [facility] Comment on above: Performed By: #### 2 04983 #### [facility],[address] [place] [address] GFR/1.73 sq M.predicted among non-blacks MDRD (S/P/Bld) [Vol rate/Area] mL/min/{1.73_m2} Normal 60 - 999 [facility] Comment on above: Performed By: #### 2 85046 #### [facility],[address] [place] [address] Result Comment: ACCO RDING TO THE NATIONAL KIDNEY DISEASE EDUCATION PROGRAM(NKDE), A NORMAL eGFR IS A VALUE GREATER THAN OR EQUAL TO 60 ML/MIN/1.73 SQ METERS. CHRONIC KIDNEY DISEASE: <60mL/MIN/1.73 SQ METERS KIDNEY FAILURE: <15mL/MIN/1.73 SQ METERS THIS TEST SHOULD ONLY BE USED FOR PATIENTS 18 YEARS OF AGE AND OLDER. Globulin (S) [Mass/Vol] 4.5 g/dL High 1.5 - 3.8 [facility] Comment on above: Performed By: #### 2 82142 #### [facility],[address] [place] [address] 62687 Glucose [Mass/Vol] 88 mg/dL Normal 74 - 106 [facility] Comment on above: Performed By: #### 2 37919 #### [facility],[address] [place] [address] 46679 Potassium [Moles/Vol] 3.8 mmol/L Normal 3.5 - 5.1 [facility] Comment on above: Performed By: #### 2 58523 #### [facility],[address] [place] [address] 05467 Protein [Mass/Vol] 7.1 g/dL Normal 6.4 - 8.2 [facility] Comment on above: Performed By: #### 2 59062 #### [facility],[address] [place] [address] 64692 Sodium [Moles/Vol] 133 mmol/L Low 136 - 145 [facility] Comment on above: Performed By: #### 2 15381 #### [facility],[address] [place] [address] 34356 Urea nitrogen [Mass/Vol] 6 mg/dL Low 7 - 18 [facility] Comment on above: Performed By: #### 2 57479 #### [facility],[address] [place] [address] 30868 Laboratory - Urinalysison Glucose Test strip (U) [Mass/Vol] Negative Normal [facility] Protein Ql (U) Negative Normal [facility] GLUCOSE, GESTATIONAL SCREEN (50G)-135 CUTOFFon 03-20-2023 Glucose [Mass/Vol] 119 mg/dL Normal <135 [facility] Comment on above: Performed By: #### 5 96, 1708 #### [facility] [address], [address] [place] [phone] Director Money: Anil Marie MD HEMOGLOBINon 03-20-2023 Hemoglobin (Bld) [Mass/Vol] 10.5 g/dL Low 11.7-15.5 [facility] Comment on above: Performed By: #### 5 , 5248 #### [facility] [address], [address] [place] [address] Director Money: Anil Marie MD Laboratory - Chemistry and C hemistry - challengeon 03-19-2023 Glucose [Mass/Vol] 119 mg/dL Normal [facility].; [facility]. Laboratory - Hematology and Cell countson 03-19-2023 Hemoglobin (Bld) [Mass/Vol] 10.5 g/dL Abnormal 11.7 - 15.5 g/dL [facility].; [facility], [facility]. Laboratory - Urinalysison Glucose Test strip (U) [Mass/Vol] Negative Normal [facility].; [place] [facility]. Protein Ql (U) Negative Normal [facility].; [facility], [employer]. OBSTETRIC PANELon 12-17-2022 ABO group Nom (Bld) O Normal [facility] Comment on above: Performed By: #### 3 6126, #### [facility] [place] [address] Director Money: Anil Marie MD ANTIBODY SCREEN, RBC W/REFL ID, TITER AND AG Detected Normal [facility] Comment on above: Result Comment: Refe rence range No antibodies detected This assay is a screening test for the detection of red blood cell antibodies. The test is not to be used for pretransfusion screening or for the medical management of an alloimmunized . Performed By: #### 3 6126, #### [facility] [address], [address] [place] [address] Director Money: Anil Marie MD Basophils (Bld) [#/Vol] 0.017 10*3/uL Normal 0-200 [facility] Comment on above: Performed By: #### 3 6126, #### [facility] [address], [address] [place] [address] Director Money: Anil Marie MD Basophils/100 WBC (Bld) 0.2 % Normal [facility] Comment on above: Performed By: #### 3 6126, #### [facility] of [place] [address] Director Money: Anil Marie MD Eosinophils (Bld) [#/Vol] 0.331 10*3/uL Normal 15-500 [facility] Comment on above: Performed By: #### 3 6126, #### [facility] of [place] [address] Director Money: Anil Marie MD Eosinophils/100 WBC (Bld) 3.8 % Normal [facility] Comment on above: Performed By: #### 3 6126, #### [facility] of [place] [address] Director Money: Anil Marie MD Erythrocyte distribution width (RBC) [Ratio] 12.8 % Normal 11.0-15.0 [facility] Comment on above: Performed By: #### 3 6126, #### [facility] of [place] [address] Director Money: Anil Marie MD Hematocrit (Bld) [Volume fraction] 40.4 % Normal 35.0-45.0 [facility] Comment on above: Performed By: #### 3 6126, #### [facility] of [place] [address] Director Money: Anil Marie MD Hemoglobin (Bld) [Mass/Vol] 13.6 g/dL Normal 11.7-15.5 [facility] Comment on above: Performed By: #### 3 6126, #### [facility] of [place] [address] Director Money: Anil Marie MD HEPATITIS B SURFACE ANTIGEN Non-Reactive Normal NON-REACTIVE [facility] Comment on above: Result Comment: For additional information, please refer to http://education.PEPperPRINT/faq/PNO398 (This link is being provided for informational/ educational purposes only.) Performed By: #### 3 61, #### [facility] of [place] [address] Director Money: Anil Marie MD Lymphocytes (Bld) [#/Vol] 2.045 10*3/uL Normal 850-3900 [facility] Comment on above: Performed By: #### 3 6126, #### [facility] of [place] [address] Director Money: Anil Marie MD Lymphocytes/100 WBC (Bld) 23.5 % Normal [facility] Comment on above: Performed By: #### 3 6126, #### [facility] of [place] [address] Director Money: Anil Marie MD MCH (RBC) [Entitic mass] 28.8 pg Normal 27.0-33.0 [facility] Comment on above: Performed By: #### 3 6126, #### [facility] [place] [address] Director Money: Anil Marie MD MCHC (RBC) [Mass/Vol] 33.7 g/dL Normal 32.0-36.0 [facility] Comment on above: Performed By: #### 3 6126, #### [facility] of [place] [address] Director Money: Anil Marie MD MCV (RBC) [Entitic vol] 85.4 fL Normal 80.0-100.0 [facility] Comment on above: Performed By: #### 3 6126, #### [facility] of [place] [address] Director Money: Anil Marie MD Monocytes (Bld) [#/Vol] 0.452 10*3/uL Normal 200-950 [facility] Comment on above: Performed By: #### 3 6126, #### [facility] of [address], [address] [place] [address] Director Money: Anil Marie MD Monocytes/100 WBC (Bld) 5.2 % Normal [facility] Comment on above: Performed By: #### 3 61, #### [facility] of [address], [address] [place] [address] Director Money: Anil Marie MD Neutrophils (Bld) [#/Vol] 5.855 10*3/uL Normal 5430-9341 [facility] Comment on above: Performed By: #### 3 6126, #### [facility] of [address], [address] [place] [address] Director Money: Anil Marie MD Neutrophils/100 WBC (Bld) 67.3 % Normal [facility] Comment on above: Performed By: #### 3 6126, #### [facility] of [address], [address] [place] [address] Director Money: Anil Marie MD Platelet mean volume (Bld) [Entitic vol] 12.3 fL Normal 7.5-12.5 [facility] Comment on above: Performed By: #### 3 6126, #### [facility] of [place] [address] Director Money: Anil Marie MD Platelets (Bld) [#/Vol] 179 10*3/uL Normal 140-400 [facility] Comment on above: Performed By: #### 3 6126, #### [facility] of [address], [address] [place] [address] Director Money: Anil aMrie MD RBC (Bld) [#/Vol] 4.73 10*6/uL Normal 3.80-5.10 [facility] Comment on above: Performed By: #### 3 6126, #### [facility] of [address], [address] [place] [address] Director Money: Anil Marie MD RH TYPE Positive Normal [facility] Comment on above: Result Comment: For additional information, please refer to http://education.[employer]/faq/MAR629 (This link is being provided for informational/ educational purposes only.) Performed By: #### 3 61, #### [facility] [address], [address] [place] [address] Director Money: Anil Marie MD RPR (DX) W/REFL TITER AND CONFIRMATORY TESTING Non-Reactive Normal NON-REACTIVE [facility] Comment on above: Performed By: #### 3 61, #### [facility] [address], [address] [place] [address] Director Money: Anil Marie MD RUBELLA AB (IGG), IMMUNE STATUS 3.87 Index Normal [facility] Comment on above: Result Comment: Inde x Interpretation ----- <0.90 Not consistent with immunity 0.90-0.99 Equivocal > or = 1.00 Consistent with immunity The presence of rubella IgG antibody suggests immunization or past or current infection with rubella virus. Performed By: #### 3 61, #### [facility] [place] [address] Director Money: Anil Marie MD WBC (Bld) [#/Vol] 8.7 10*3/uL Normal 3.8-10.8 [facility] Comment on above: Performed By: #### 3 61, #### [facility] [address], [address] [place] [address] Director Money: Anil Marie MD TSH W/REFLEX TO FT4on 2022 TSH W/REFLEX TO FT4 1.97 mIU/L Normal [facility] Comment on above: Result Comment: Refe rence Range > or = 20 Years 0.40-4.50 Ranges First trimester 0.26-2.66 Second trimester 0.55-2.73 Third trimester 0.43-2.91 Performed By: #### 3 6127, #### [facility] [address], [address] [place] [address] Director Money: Anil Marie MD Laboratory - Blood bankon ABO group Nom (Bld) O Normal [facility], [employer].; [employer], [employer]. Rh Nom (Amn fld) Positive Normal [facility] [employer], [employer]. Laboratory - Chemistry and C hemistry - challengeon 12-14-2022 Bilirubin Ql (U) Negative Normal [facility], [employer].; [employer], [employer]. Ketones Ql (U) Negative Normal [facility], [employer].; [employer], [employer]. pH (U) 6.5 [pH] Normal [facility] [employer] [employer], [employer]. Specific gravity (U) [Rel density] 1.025 Normal [facility].; [employer]. Urobilinogen Qn (U) 0.2 mg/dL Normal [facility] [employer], [employer]. Laboratory - Hematology and Cell countson 12-14-2022 Basophils (Bld) [#/Vol] 0.017 10*3/uL Normal 0 - 200 {cells/uL} [facility], [employer].; [employer], [employer] Basophils/100 WBC (Bld) 0.2 % Normal [employer].; [employer], [employer]. Eosinophils (Bld) [#/Vol] 0.331 10*3/uL Normal 15 - 500 {cells/uL} [facility], [employer].; [employer], [employer]. Eosinophils/100 WBC (Bld) 3.8 % Normal [employer].; [employer], [employer]. Erythrocyte distribution width (RBC) [Ratio] 12.8 % Normal 11.0 - 15.0 % [facility], [employer].; [employer], [employer] Hematocrit (Bld) [Volume fraction] 40.4 % Normal 35.0 - 45.0 % [employer], [employer].; [employer], [employer]. Hemoglobin (Bld) [Mass/Vol] 13.6 g/dL Normal 11.7 - 15.5 g/dL [facility].; [facility]. Hemoglobin Ql (U) trace-lysed Normal [facility].; [facility], [facility]. Lymphocytes (Bld) [#/Vol] 2.045 10*3/uL Normal 850 - 3900 {cells/uL} [facility], [facility].; [facility], [facility]. Lymphocytes/100 WBC (Bld) 23.5 % Normal [facility].; [facility], [facility]. MCH (RBC) [Entitic mass] 28.8 pg Normal 27.0 - 33.0 pg [facility].; [facility], [facility]. MCHC (RBC) [Mass/Vol] 33.7 g/dL Normal 32.0 - 36.0 g/dL [facility], [facility].; [place] [facility], [facility]. MCV (RBC) [Entitic vol] 85.4 fL Normal 80.0 - 100.0 fL [facility].; [facility], [facility]. Monocytes (Bld) [#/Vol] 0.452 10*3/uL Normal 200 - 950 {cells/uL} [facility], [facility].; [place] [employer], [facility]. Monocytes/100 WBC (Bld) 5.2 % Normal [facility].; [facility], [facility]. Neutrophils (Bld) [#/Vol] 5.855 10*3/uL Normal 1500 - 7800 {cells/uL} [facility], [facility].; [place] [employer], [facility]. Neutrophils/100 WBC (Bld) 67.3 % Normal [facility].; [place] [employer], [facility]. Platelet mean volume (Bld) [Entitic vol] 12.3 fL Normal 7.5 - 12.5 fL [facility].; [facility] [employer], [facility]. Platelets (Bld) [#/Vol] 179 10*3/uL Normal 140 - 400 [facility].; [place] [facility], [facility]. RBC (Bld) [#/Vol] 4.73 10*6/uL Normal 3.80 - 5.1 0 {Million/uL} [facility]; [facility], [facility]. WBC (Bld) [#/Vol] 8.7 10*3/uL Normal 3.8 - 10.8 [facility]; [facility] Laboratory - Specimen inform ationon 12-14-2022 Appearance (U) clear Normal [facility]; [facility] Color (U) yellow Normal [facility]; [facility] Laboratory - Urinalysison Glucose Test strip (U) [Mass/Vol] Negative Normal [facility]; [facility] Leukocyte esterase Test strip Ql (U) Negative Normal [facility]; [facility] Nitrite Ql (U) Negative Normal [facility]; [facility], [facility] Protein Ql (U) Negative Normal [facility].; [facility] No Panel Informationon 12-14 ANTIBODY SCREEN, RBC W/REFL ID, TITER AND AG Detected Normal [facility]; [facility] HEPATITIS B SURFACE ANTIGEN Non-Reactive Normal [facility]; [facility] RPR (DX) W/REFL TITER AND CONFIRMATORY TESTING Non-Reactive Normal [facility]; [facility] RUBELLA AB (IGG), IMMUNE STATUS 3.87 {Index} Normal [facility]; [facility], [facility] TSH W/REFLEX TO FT4 1.97 {mIU/L} Normal [facility]; [facility] Laboratory - Chemistry and C hemistry - challengeon 05-29-2022 Bilirubin Ql (U) Negative Normal [facility].; [facility], [facility] Ketones Ql (U) Negative Normal [facility].; [facility], [facility] pH (U) 7.0 [pH] Normal [facility].; [facility], [facility] Specific gravity (U) [Rel density] 1.020 Normal [facility]; [facility], [facility] Urobilinogen Qn (U) 1.0 mg/dL Normal [facility].; [employer]. Laboratory - Hematology and Cell countson 05-29-2022 Hemoglobin Ql (U) Negative Normal [facility].; [employer]. Laboratory - Specimen inform ationon 05-29-2022 Appearance (U) clear Normal [facility] [employer].; [employer]. Color (U) yellow Normal [employer].; [employer]. Laboratory - Urinalysison Glucose Test strip (U) [Mass/Vol] Negative Normal [employer].; [employer]. Leukocyte esterase Test strip Ql (U) small Abnormal [employer].; [employer]. Nitrite Ql (U) Negative Normal [facility] [employer].; [employer]. Protein Ql (U) Negative Normal [facility] [employer].; [employer]. XR Chest PA and Lateralon IMPRESSION: No acute radiographic abnormality. Hydraulic Mechanic: [id number] Transcribe Date/Time: Sep 30 2020 10:23A Dictated by : PHUONG PIMENTEL MD This examination was interpreted and the report reviewed and electronically signed by: PHUONG PIMENTEL MD on Sep 30 2020 10:24AM [facility] DIVISION OF RADIOLOGY * * *Final Report* * * DATE OF EXAM: Sep 30 2020 10:20AM WOX [id number] - XR CHEST 2V FRONTAL/LAT / PROCEDURE REASON: Rib pain * * * * Physician Interpretation * * * * EXAMINATION: CHEST RADIOGRAPH (2 VIEW FRONTAL & LATERAL) CLINICAL HISTORY: Rib pain MQ: [id number] EXAM DATE/TIME: 09/30/2020 10:20 AM COMPARISON: No relevant prior studies available. RESULT: Lines, tubes, and devices: None. Lungs and pleura: No focal consolidation, pleural effusion or pneumothorax. Cardiomediastinal silhouette: Within normal limits. Bones and soft tissues: No acute osseous abnormality. DIVISION OF RADIOLOGY Provider, [facility] - 09/30/2020 * * *Final Report* * * DATE OF EXAM: Sep 30 2020 10:20AM WOX [id number] - XR CHEST 2V FRONTAL/LAT / PROCEDURE REASON: Rib pain * * * * Physician Interpretation * * * * EXAMINATION: CHEST RADIOGRAPH (2 VIEW FRONTAL & LATERAL) CLINICAL HISTORY: Rib pain MQ: [id number] EXAM DATE/TIME: 09/30/2020 10:20 AM COMPARISON: No relevant prior studies available. RESULT: Lines, tubes, and devices: None. Lungs and pleura: No focal consolidation, pleural effusion or pneumothorax. Cardiomediastinal silhouette: Within normal limits. Bones and soft tissues: No acute osseous abnormality. IMPRESSION IMPRESSION: No acute radiographic abnormality. Hydraulic Mechanic: PSCB Transcribe Date/Time: Sep 30 2020 10:23A Dictated by : PHUONG PIMENTEL MD This examination was interpreted and the report reviewed and electronically signed by: PHUONG PIMENTEL MD on Sep 30 2020 10:24AM EST [facility] Radiology Study observation (narrative) [facility] XR Chest PA and LateralOrder ed By: Ccf Provider on 09-30-2020 [facility] STRP SCNon 08-05-2018 STRP SCN Performed at: [facility] [address] [place] [id number] STREP SCREEN NEGATIVE - CULTURE TO FOLLOW REFERENCE RANGE NORMAL RESULT IS NEGATIVE. Normal [facility] 08-05-2018 THT ORGANISM 1: NO GROUP A BETA STREP ISOLATED [facility] Comment on above: Performed By: #### M [id number] #### ML - LABORATORY [address] [place] [id number] Vital Signs Date Time Vital Sign Value Performing Clinician Facility 02-11-2025 08:26-0400 Body weight 77.38 kg Megan Blaine HOUSECLEANER FLOOR.MANAGER ENT Work Phone: [facility] 02-11-2025 08:26-0400 Diastolic blood pressure 66 mm[Hg] Megan Issa HOUSECLEANER FLOOR.MANAGER ENT Work Phone: [facility] 02-11-2025 08:26-0400 Systolic blood pressure 122 mm[Hg] Megan Issa HOUSECLEANER FLOOR.MANAGER ENT Work Phone: [facility] 07-19-2023 09:37-0500 Body height 146.69 cm Amita Santos MA [facility].; [employer] [facility]. 07-19-2023 09:37-0500 Body mass index (BMI) [Ratio] 32.04 kg/m2 Amita Santos MA [facility].; [facility] [employer] [facility]. 07-19-2023 09:37-0500 Body surface area Derived from formula 1.62 m2 Amita Santos MA [facility].; [employer]. 07-19-2023 09:37-0500 Body weight 68.95 kg Amita Santos MA [facility].; [facility] [employer] [facility]. 07-19-2023 09:37-0500 Diastolic blood pressure 62 mm[Hg] Amita Santos MA [facility].; [employer]. Comment on above: Patient Position: Si tting; Cuff Location: Left Arm; Cuff Size: Standard 07-19-2023 09:37-0500 Heart rate 99 /min Amita Santos MA [facility].; [employer]. Comment on above: Pattern: Regular 07-19-2023 09:37-0500 Systolic blood pressure 99 mm[Hg] Amita Santos MA [employer] [facility].; [employer]. Comment on above: Patient Position: Si tting; Cuff Location: Left Arm; Cuff Size: Standard 06-04-2023 10:44-0500 Body weight 77.11 kg Lee Irene RN [employer] [facility].; [employer]. 06-04-2023 10:44-0500 Diastolic blood pressure 80 mm[Hg] Lee Irene RN [employer]. Comment on above: Patient Position: Si tting; Cuff Location: Left Arm; Cuff Size: Standard 06-04-2023 10:44-0500 Heart rate 98 /min Lee Irene RN [employer] [facility].; [employer]. Comment on above: Pattern: Regular 06-04-2023 10:44-0500 Systolic blood pressure 125 mm[Hg] Lee Irene RN [employer]. Comment on above: Patient Position: Si tting; Cuff Location: Left Arm; Cuff Size: Standard 05-28-2023 09:46-0500 Body weight 78.02 kg Lee Irene RN [facility] [employer]. 05-28-2023 09:46-0500 Diastolic blood pressure 85 mm[Hg] Lee Irene RN [employer]. Comment on above: Patient Position: Si tting; Cuff Location: Left Arm; Cuff Size: Standard 05-28-2023 09:46-0500 Heart rate 90 /min Lee Irene RN [employer]. Comment on above: Pattern: Regular 05-28-2023 09:46-0500 Systolic blood pressure 123 mm[Hg] Lee Irene RN [employer].; [employer]. Comment on above: Patient Position: Si tting; Cuff Location: Left Arm; Cuff Size: Standard 05-27-2023 11:31-0500 Body weight 79.38 kg Savannah Ramos LPN [employer].; [employer]. 05-27-2023 11:31-0500 Diastolic blood pressure 82 mm[Hg] Savannah Ramos LPN [employer]. Comment on above: Patient Position: Si tting; Cuff Location: Left Arm; Cuff Size: Standard 05-27-2023 11:31-0500 Diastolic blood pressure 101 mm[Hg] Savannah Ramos LPN [employer]. Comment on above: Patient Position: Si tting; Cuff Location: Left Arm; Cuff Size: Standard 05-27-2023 11:31-0500 Heart rate 93 /min Savannah Ramos LPN [employer]. Comment on above: Pattern: Regular 05-27-2023 11:31-0500 Systolic blood pressure 121 mm[Hg] Savannah Ramos LPN [employer]. Comment on above: Patient Position: Si tting; Cuff Location: Left Arm; Cuff Size: Standard 05-27-2023 11:31-0500 Systolic blood pressure 138 mm[Hg] Savannah Ramos LPN [employer]. Comment on above: Patient Position: Si tting; Cuff Location: Left Arm; Cuff Size: Standard 05-20-2023 16:28-0500 Body weight 79.38 kg Amita Santos MA [employer]. 05-20-2023 16:28-0500 Diastolic blood pressure 84 mm[Hg] Amita Santos MA [employer]. Comment on above: Patient Position: Si tting; Cuff Location: Left Arm; Cuff Size: Standard 05-20-2023 16:28-0500 Heart rate 114 /min Amita Santos MA [employer]. Comment on above: Pattern: Regular 05-20-2023 16:28-0500 Systolic blood pressure 118 mm[Hg] Amita Santos MA [employer]. Comment on above: Patient Position: Si tting; Cuff Location: Left Arm; Cuff Size: Standard 04-17-2023 15:32-0500 Body weight 75.3 kg Kellen Jaffe OPS MANAGER Work Phone: [employer]. 04-17-2023 15:32-0500 Diastolic blood pressure 83 mm[Hg] Kellen Ld OPS MANAGER Work Phone: [employer].; [employer]. Comment on above: Patient Position: Si tting; Cuff Location: Left Arm; Cuff Size: Standard 04-17-2023 15:32-0500 Heart rate 111 /min Kellen Ld OPS MANAGER Work Phone: [employer]. Comment on above: Pattern: Regular 04-17-2023 15:32-0500 Systolic blood pressure 126 mm[Hg] Kellen Ld OPS MANAGER Work Phone: [employer]. Comment on above: Patient Position: Si tting; Cuff Location: Left Arm; Cuff Size: Standard 03-19-2023 13:00-0400 Body weight 75.3 kg Savannah Ramos CLIFTON [facility].; [employer]. 03-19-2023 13:00-0400 Diastolic blood pressure 83 mm[Hg] Savannha Richardmichael LAZO [facility].; [employer]. Comment on above: Patient Position: Si tting; Cuff Location: Left Arm; Cuff Size: Standard 03-19-2023 13:00-0400 Heart rate 118 /min Savannah Richard LAZO [employer] [facility].; [employer]. Comment on above: Pattern: Regular 03-19-2023 13:00-0400 Systolic blood pressure 128 mm[Hg] Savannah Richard LAZO [employer]. Comment on above: Patient Position: Si tting; Cuff Location: Left Arm; Cuff Size: Standard 02-14-2023 15:22-0400 Body weight 70.76 kg [facility] Work Phone: [employer]. 02-14-2023 15:22-0400 Diastolic blood pressure 81 mm[Hg] [facility] Work Phone: [employer]. Comment on above: Patient Position: Si tting; Cuff Location: Left Arm; Cuff Size: Standard 02-14-2023 15:22-0400 Heart rate 98 /min [facility] Work Phone: [employer]. Comment on above: Pattern: Regular 02-14-2023 15:22-0400 Systolic blood pressure 129 mm[Hg] [facility] Work Phone: [employer]. Comment on above: Patient Position: Si tting; Cuff Location: Left Arm; Cuff Size: Standard 01-16-2023 14:22-0400 Body weight 68.95 kg Savannah Ramos LPN [facility], [facility].; [employer]. 01-16-2023 14:22-0400 Diastolic blood pressure 84 mm[Hg] Savannah Ramos LPN [facility], [facility].; [employer], [employer]. Comment on above: Patient Position: Si tting; Cuff Location: Left Arm; Cuff Size: Standard 01-16-2023 14:22-0400 Heart rate 108 /min Savannah Ramos LPN [facility], [facility].; [employer], [employer]. Comment on above: Pattern: Regular 01-16-2023 14:22-0400 Systolic blood pressure 118 mm[Hg] Savannah Ramos LPN [facility], [facility].; [employer], [employer]. Comment on above: Patient Position: Si tting; Cuff Location: Left Arm; Cuff Size: Standard 12-14-2022 [id number] Body weight 66.68 kg Savannah Ramos LPN [facility], [facility].; [employer], [employer]. 12-14-2022 14:070400 Diastolic blood pressure 88 mm[Hg] Savannah Ramos LPN [facility], [facility].; [employer], [employer]. Comment on above: Patient Position: Si tting; Cuff Location: Left Arm; Cuff Size: Standard 12-14-2022 14:070400 Heart rate 78 /min Savannah Ramos LPN [facility], [facility].; [employer], [employer]. Comment on above: Pattern: Regular 12-14-2022 14:070400 Systolic blood pressure 124 mm[Hg] Savannah Ramos LPN [facility], [facility].; [employer]. Comment on above: Patient Position: Si tting; Cuff Location: Left Arm; Cuff Size: Standard 03-06-2022 13:040 Body height 146.69 cm Lore Perry LPN [facility], [facility].; [employer], [employer]. 03-06-2022 13:22-0400 Body mass index (BMI) [Ratio] 32.04 kg/m2 Lore Perry LPN [facility], [facility].; [employer] [facility]. 03-06-2022 13:22-0400 Body surface area Derived from formula 1.62 m2 Lore Perry LPN [facility], [facility].; [facility], [facility]. 03-06-2022 13:[id number] Body weight 68.95 kg Lore Perry LPN [facility], [facility].; [employer] [facility] 03-06-2022 13:22-0400 Diastolic blood pressure 90 mm[Hg] Lore Perry LPN [facility], [facility].; [employer] [facility], [facility]. Comment on above: Patient Position: Si tting; Cuff Location: Left Arm; Cuff Size: Standard 03-06-2022 13:22-0400 Heart rate 98 /min Lore Perry LPN [facility], [facility].; [employer] [facility], [facility]. Comment on above: Pattern: Regular 03-06-2022 13:22-0400 Systolic blood pressure 133 mm[Hg] Lore Perry LPN [facility], [facility].; [employer] [facility], [facility]. Comment on above: Patient Position: Si tting; Cuff Location: Left Arm; Cuff Size: Standard 02-14-2022 13:32-0400 Body height 146.69 cm Savannah Ramos LPN [facility], [facility].; [employer], [facility]. 02-14-2022 13:32-0400 Body mass index (BMI) [Ratio] 32.25 kg/m2 Savannah Ramos LPN [facility], [facility].; [employer] [facility] 02-14-2022 13:[id number] Body surface area Derived from formula 1.62 m2 Savannah Ramos LPN [facility], [facility].; [employer] [facility], [facility]. 02-14-2022 13:32-0400 Body weight 69.4 kg Savannah Ramos LPN [facility], [facility].; [employer] [facility], [facility]. 02-14-2022 13:32-0400 Diastolic blood pressure 82 mm[Hg] Savannah Ramos LPN [facility], [facility].; [employer] [employer], [facility]. Comment on above: Patient Position: Si tting; Cuff Location: Left Arm; Cuff Size: Standard 02-14-2022 13:32-0400 Heart rate 101 /min Savannah Ramos LPN [facility].; [facility], [facility]. Comment on above: Pattern: Regular 02-14-2022 13:32-0400 Systolic blood pressure 129 mm[Hg] Savannah Ramos LPN [facility].; [facility]. Comment on above: Patient Position: Si tting; Cuff Location: Left Arm; Cuff Size: Standard Encounters Encounter Date Encounter Type Care Provider Facility Start: 03-11-2025 End: 03-11-2025 [facility] Facility:[facility] Start: 02-12-2025 End: 02-12-2025 Telephone encounter Mahi Martinez RN Maternal Medicine Comment on above: Orthopaedic Technologist - O ther ([facility]) Start: 02-11-2025 End: 02-11-2025 Patient encounter procedure [facility] LEAH Work Phone: OB/Gynecology Comment on above: Encounter for superv ision of normal intrauterine in multigravida, antepartum (HCC) (Primary Dx); 17 weeks gestation of ([facility]); with uncertain dates, antepartum (HCC); Screen for STD (sexually transmitted disease); Screening for cervical cancer; Special screening examination for human papillomavirus (HPV); LGA (large for gestational age) infant ([facility]); Late care ([facility]) Start: 02-11-2025 End: 02-11-2025 [facility] Facility:[facility] Start: 02-10-2025 End: 02-10-2025 ambulatory Leila Rojas APRN.CNP Work Phone: OB/Gynecology Start: 08-01-2023 ambulatory CHRISTIE ROSS [facility] Start: 07-19-2023 End: 07-19-2023 Office outpatient visit 15 minutes Christie Ross PA-C Work Phone: [facility], [facility]. Start: 07-18-2023 Telephone encounter Deborah lopez MD Work Phone: [facility] Comment on above: Appointment Start: 06-07-2023 End: 06-09-2023 [facility] Start: 06-07-2023 Review Christie Ross P A-C Work Phone: [employer] Start: 06-04-2023 End: 06-04-2023 Office outpatient visit 15 minutes Christie Ross PA-C Work Phone: [employer] Start: 06-04-2023 Review Christie Ross P A-C Work Phone: [employer]. Start: 05-28-2023 End: 05-28-2023 Office outpatient visit 15 minutes Christie Ross PA-C Work Phone: [employer] Start: 05-27-2023 End: 05-27-2023 Office outpatient visit 15 minutes Christie Ross PA-C Work Phone: [employer] Start: 05-27-2023 End: 05-27-2023 ambulatory J[facility] Start: 05-20-2023 End: 05-20-2023 Office outpatient visit 15 minutes Christie Ross PA-C Work Phone: [facility] [employer] Start: 05-16-2023 End: 05-17-2023 ambulatory [facility] Start: 05-14-2023 End: 05-15-2023 ambulatory JERE [facility] Start: 04-17-2023 End: 04-17-2023 Patient encounter procedure Christie Ross PA-C Work Phone: [facility] Start: 03-19-2023 End: 03-19-2023 Office outpatient visit 15 minutes Christie Ross PA-C Work Phone: [facility] Start: 02-14-2023 End: 02-14-2023 Patient encounter procedure Christie Ross PA-C Work Phone: [facility] Start: 01-16-2023 End: 01-16-2023 Office outpatient visit 15 minutes Christie Ross PA-C Work Phone: [facility] Start: 12-14-2022 End: 12-14-2022 Office outpatient visit 25 minutes Christie Ross PA-C Work Phone: [facility] Start: 06-05-2022 End: 06-05-2022 Orders Christie Ross PA-C Work Phone: [facility] Start: 05-29-2022 End: 05-30-2022 Office outpatient visit 15 minutes Christie Ross PA-C Work Phone: [facility] Start: 03-06-2022 End: 03-07-2022 Office outpatient visit 15 minutes Christie Ross PA-C Work Phone: [facility] Start: 02-14-2022 End: 02-14-2022 Historical Summary Christie Ross PA-C Work Phone: [facility] Start: 02-14-2022 End: 02-14-2022 Initial preventive medicine new pt age 18-39yrs Christie Ross PA-C Work Phone: [facility] Start: 02-14-2022 End: 02-14-2022 Patient encounter procedure Christie Ross PA-C Work Phone: [facility]; [facility] Work Phone: Start: 09-30-2020 End: 09-30-2020 Subsequent hospital visit by physician Xr [facility] Work Phone: Radiology Comment on above: Rib pain [R07.81] Start: 08-05-2018 Patient encounter procedure ANGELES LAUREANO Facility:[facility] Patient encounter procedure Savannah Ramos LPN [facility]; [facility] Procedures Date Procedure Procedure Detail Performing Clinician Start: 02-11-2025 Antibody screen MEGAN Bhagat ETCALSanthosh Comment on above: Order Comment: Speci men Type: BLOOD SPECIMEN Ordering Facility[facility] Address: [address] [place], [place] [id number] Performed By: #### T SPN #### [facility] [place] [id number] [address] [place] [address] [place] Start: 06-04-2023 End: 06-04-2023 Ob care antepartum vag dlvr & Crystal K Uptain CNM Work Phone: Start: 05-28-2023 End: 05-28-2023 Ob care antepartum vag dlvr & Crystal K Uptain CNM Work Phone: Start: 05-27-2023 End: 05-27-2023 Ob care antepartum vag dlvr & Crystal K Uptain CNM Work Phone: Start: 05-20-2023 End: 05-20-2023 Ob care antepartum vag dlvr & Crystal K Uptain CNM Work Phone: Start: 05-16-2023 Urinalysis FATMATA HOLLOWAY Comment on above: Result Comment: URIN ALYSIS Performed By: #### 2 [id number] #### [facility],[address] [place] [address] Start: 04-17-2023 End: 04-18-2023 Us preg uterus after 1st trimest 06/10 gestation Fatmata Sapp MD Work Phone: Start: 04-17-2023 End: 04-17-2023 Ob care antepartum vag dlvr & Fatmata Sapp MD Work Phone: Start: 03-19-2023 End: 03-19-2023 Ob care antepartum vag dlvr & Crystal K Uptain CNM Work Phone: Start: 02-14-2023 End: 02-15-2023 Us preg uterus after 1st trimest 06/10 gestation Fatmata Sapp MD Work Phone: Start: 02-14-2023 End: 02-14-2023 Ob care antepartum vag dlvr & Fatmata Sapp MD Work Phone: Start: 01-16-2023 End: 01-16-2023 Ob care antepartum vag dlvr & Crystal K Uptain CNM Work Phone: Start: 12-14-2022 End: 12-14-2022 Ob care antepartum vag dlvr & Crystal K Uptain CNM Work Phone: Start: 12-14-2022 End: 12-17-2022 Us uterus 14 wk transabdl 06/10 gestat Crystal K Uptain CNM Work Phone: Start: 05-29-2022 End: 05-29-2022 No Known Past Surgical History Lee Irene RN Start: 05-29-2022 End: 05-30-2022 Us uterus 14 wk transabdl 06/10 gestat Crystal K Uptain CNM Work Phone: Start: 03-06-2022 End: 03-07-2022 Removal non-biodegradable drug delivery implant Crystal K Uptain CNM Work Phone: Start: 02-14-2022 End: 02-14-2022 Depression screening Christie Ross PA-C Work Phone: Start: 02-14-2022 End: 02-14-2022 Scr dep neg, no plan reqd Christie Ross PA-C Work Phone: Start: 09-30-2020 Radiologic exam ches t 2 views Amanda BULLOCKC Work Phone: Plan of Treatment Date Care Activity Detail Author Start: 05-23-2025 RSV Vaccine (1 - Ris k 1-dose series) RSV Vaccine (1 - Risk 1-dose series) [facility] Start: 03-11-2025 End: 03-11-2025 Patient encounter procedure OB/Gynecology Comment on above: OB LMP unknown. [facility] 10 states due date was estimated around Jul 14 anatomy Start: 02-11-2025 End: 05-13-2025 ANEMIA REFLEX PANEL [facility] Work Phone: Comment on above: Expected: 02/11/2025 , Expires: 05/13/2025 Start: 02-11-2025 End: 05-13-2025 Hemoglobin A1c in Blood [facility] Comment on above: Expected: 02/11/2025 , Expires: 05/13/2025 Start: 02-11-2025 End: 05-13-2025 Hepatitis B virus surface Ag [Presence] in Serum [facility] Comment on above: Expected: 02/11/2025 , Expires: 05/13/2025 Start: 02-11-2025 End: 05-13-2025 Hepatitis C virus Ab [Presence] in Serum [facility] Comment on above: Expected: 02/11/2025 , Expires: 05/13/2025 Start: 02-11-2025 End: 05-13-2025 HIV 1+2 Ab [Presence] in Serum or Plasma by Immunoassay [facility] Comment on above: Expected: 02/11/2025 , Expires: 05/13/2025 Start: 02-11-2025 End: 02-11-2026 OBSTETRIC ULTRASOUND [facility] OBSTETRIC ULTRASOUND [facility] Anc Imaging Routine with uncertain dates, antepartum (HCC) Expected: 02/11/2025, Expires: 02/11/2026 [facility] Comment on above: Expected: 02/11/2025 , Expires: 02/11/2026 Start: 02-11-2025 End: 05-13-2025 RUBELLA IGG ANTIBODY [facility] Comment on above: Expected: 02/11/2025 , Expires: 05/13/2025 Start: 02-11-2025 End: 05-13-2025 SYPHILIS TREPONEMAL W/REFLEX [facility] Comment on above: Expected: 02/11/2025 , Expires: 05/13/2025 Start: 02-11-2025 End: 05-13-2025 TYPE + SCREEN [facility] Comment on above: Expected: 02/11/2025 , Expires: 05/13/2025 Start: 02-11-2025 End: 02-11-2025 Patient encounter procedure 02/11/2025 8:15 AM EDT Initial Office Visit OB/Gynecology [address] [place] [id number] Megan Moreno APRN.MANAGER ENT [address] [place] [address] OB LMP unknown. Pt saw care center December 10 due date was estimated around Jul 14 OB/Gynecology Comment on above: OB LMP unknown. Pt s [facility] care [facility] December 10 due date was estimated around Jul 14 Start: 02-08-2025 Influenza vaccination Influenza Vacc ine (#1) [facility] Start: 2024 HPV Vaccine (1 - 3-d ose SCDM series) HPV Vaccine (1 - 3-dose SCDM series) [facility] Start: 02-09-2024 Covid-19 Vaccine ( season) Covid-19 Vaccine () [facility] Start: 02-09-2024 Influenza vaccination Influenza Vacc ine (#1) [facility] Start: 08-05-2023 Patient encounter procedure Medical; PP PHYSICAL - pp phy (rjb 150) [employer] Start: 05-Aug-2023 13:20 EARNEST Crowder Appointment Request [employer]. Start: 07-19-2023 Us breast uni real t jossie with image limited Breast US, Bilateral Complete (30004) Start: 19-Jul-2023 Intent [employer]. Start: 06-10-2023 Depression Assessment Depression Ass essment [facility] Start: 06-04-2023 Ob care antepartum v ag dlvr & OBSTETRICAL CARE ([id number]) Start: 04-Jun-2023 Intent [employer]. Start: 06-04-2023 Patient encounter procedure Medical; OB - 1 week ob [employer]. Start: 04-Jun-2023 10:30 EARNEST Crowder Appointment Request [employer]. Start: 06-04-2023 Urnls dip stick/tabl et rgnt auto w/o microscopy Urinalysis-OB (in house*) ([id number]) Start: 04-Jun-2023 8:05 Request [employer] Start: 02-08-2023 Influenza vaccination Influenza Vacc ine (#1) [facility] Start: 02-14-2022 End: 02-14-2022 Screening test pure tone air only Hearing Screen ([id number]) Date: 14-Feb-2022 [facility] Start: 11-04-2021 Screening for malign ant neoplasm of cervix [facility] Start: 11-13-2019 Urine microalbumin profile DTaP,Tdap,Td Vaccine (7 - Td or Tdap) [facility] Start: 09-30-2015 Anxiety Screening Anxiety Screening [facility] Start: 09-30-2015 Depression Screening Depression Scre ening [facility] Start: 09-30-2015 Hepatitis C screening Hepatitis C Sc carolannning [facility] Start: 09-30-2015 HIV screening HIV Screening [facility] Start: 2013 Meningococcal B Vaccine: Consider Based On Risk (1 of 2 - Patient Seeks Protection) Meningococcal B Vaccine: Consider Based On Risk (1 of 2 - Patient Seeks Protection) [facility] Start: 2012 HPV Vaccine (1 - 3-d ose series) HPV Vaccine (1 - 3-dose series) [facility] Start: 09-30-2011 Peds To Adult Transition Annual Assessment Peds To Adult Transition Annual Assessment [facility] Start: 2009 Peds To Adult Transition Initial Discussion Peds To Adult Transition Initial Discussion [facility] Start: 2006 HPV Vaccine (1 - 2-d ose series) HPV Vaccine (1 - 2-dose series) [facility] Start: 03-31-1998 Covid-19 Vaccine (#1) Covid-19 Vacci ne (#1) [facility] Bacteria identified in Urine by Culture BACTERIAL CULTURE, URINE Microbiology Routine with uncertain dates, antepartum (HCC) 02/11/2025 9:02 AM EDT [facility] Chlamydia trachomatis+Neisseria gonorrhoeae DNA [Presence] in Unspecified specimen by AMARI with probe detection GONORRHEA/CHLAMYDIA NAAT Lab Routine with uncertain dates, antepartum (HCC) 02/11/2025 9:02 AM EDT [facility] PAP TEST PAP TEST Lab Rou brad Screening for cervical cancer Special screening examination for human papillomavirus (HPV) 02/11/2025 9:02 AM EDT [facility] TRICHOMONAS VAGINALI S NAAT TRICHOMONAS VAGINALIS NAAT Lab Routine Screen for STD (sexually transmitted disease) 02/11/2025 9:02 AM EDT [facility] Immunizations Immunization Date Immunization Notes Care Provider Fa cecilia 11-12-2009 Meningococcal, MCV4, unspecified conjugate formulation(groups A, C, Y and W-135) Deborah Schmitz MD Work Phone: [facility] 11-12-2009 tetanus toxoid, redu michelle diphtheria toxoid, and acellular pertussis vaccine, adsorbed Deborah Schmitz MD Work Phone: [facility] 10-15-2001 diphtheria, tetanus toxoids and acellular pertussis vaccine Deborah Schmitz MD Work Phone: [facility] 10-15-2001 measles, mumps and rubella virus vaccine Deborah Schmitz MD Work Phone: [facility] 10-15-2001 poliovirus vaccine, inactivated Deborah Schmitz MD Work Phone: [facility] 09-06-1999 diphtheria, tetanus toxoids and acellular pertussis vaccine Deborah Schmitz MD Work Phone: [facility] 09-06-1999 haemophilus influenz ae type b vaccine, HbOC conjugate Deborah Schmitz MD Work Phone: [facility] 10-05-1998 measles, mumps and rubella virus vaccine Deborah Schmitz MD Work Phone: [facility] 10-05-1998 poliovirus vaccine, inactivated Deborah Schmitz MD Work Phone: [facility] 10-05-1998 varicella virus vaccine Alice Schmitz MD Work Phone: [facility] 07-06-1998 diphtheria, tetanus toxoids and acellular pertussis vaccine Deborah Schmitz MD Work Phone: [facility] 07-06-1998 haemophilus influenz ae type b vaccine, HbOC conjugate Deborah Schmitz MD Work Phone: [facility] 07-06-1998 hepatitis B vaccine, pediatric or pediatric/adolescent dosage Deborah Schmitz MD Work Phone: [facility] 02-16-1998 diphtheria, tetanus toxoids and acellular pertussis vaccine Deborah Schmitz MD Work Phone: [facility] 02-16-1998 haemophilus influenz ae type b vaccine, HbOC conjugate Deborah Schmitz MD Work Phone: [facility] 02-16-1998 poliovirus vaccine, inactivated Deborah Schmitz MD Work Phone: [facility] 1997 diphtheria, tetanus toxoids and acellular pertussis vaccine Deborah Schmitz MD Work Phone: [facility] 1997 haemophilus influenz ae type b vaccine, HbOC conjugate Deborah Schmitz MD Work Phone: [facility] 1997 poliovirus vaccine, inactivated Deborah Schmitz MD Work Phone: [facility] 1997 hepatitis B vaccine, pediatric or pediatric/adolescent dosage Deborah Schmitz MD Work Phone: [facility] 1997 hepatitis B vaccine, pediatric or pediatric/adolescent dosage Deborah Schmitz MD Work Phone: [facility] Payers Date Payer Category Payer Medicaid [id number] 2023 Medicaid [id number] Unknown [id number] Unknown [id number] Social History Date Type Detail Facility Start: 09-30-2020 End: 02-11-2025 [facility] [employer] Tobacco Use: Tobacco Use: ; N ever smoker. [employer] [facility] [employer] Work Phone: Start: 05-28-2023 End: 06-04-2023 [facility], [facility]. Start: 06-24-2017 End: 02-11-2025 Never smoked tobacco [facility] Work Phone: Start: 06-24-2017 End: 02-11-2025 Tobacco use and exposure Smokeless tobacco non-user [facility] Work Phone: Start: 09-30-2020 Alcohol intake Not [facility]ked [facility] Start: 09-30-2020 End: 02-11-2025 Tobacco use panel [facility] Start: 05-11-2012 National Score (1-10 0), lower number is lower risk Not on file [facility] Start: 1997 Sex Assigned At Not on file [facility] Start: 08-31-2020 End: 09-30-2020 Exposure to SARS-CoV-2 (event) Not sure [facility] Start: 02-11-2025 Alcoholic beverage intake Lifetime non-drinker (finding) [facility] How often to you hav e a drink containing alcohol? Never [facility] Functional Status Date Assessment Result Facility 02-11-2025 Total score [AUDIT-C] 0 02/12/20 25 8:19 AM EDT Laura Ramos LPN [facility] Clinical Notes 09-30-2020 to 02-12-2025 Telephone Encounter - Mahi Martinez RN - 02/12/2025 12:00 PM EDTTelephone Encounter - Mahi Martinez RN - 02/12/2025 12:00 PM Leila Suárez APRN.MANAGER ENT - 02/11/2025 8:15 AM EDT Note Date & Type Note Facility 02-12-2025 Telephone encount er Note 1st risk assessment form submitted 02/12/2025. Mahi Martinez RN [facility] 02-12-2025 Miscellaneous Notes Formattin g of this note might be different from the original. 1st risk assessment form submitted 02/12/2025. Mahi Martinez RN documented in this encounter [facility] 02-11-2025 History of Presen t illness Narrative Attempted to call patient for new OB intake questions. Left voicemail. 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 INITIAL OB ASSESSMENT HPI: Aminata is a 29 year old White here to establish Obstetrical Care. Patient's last menstrual period was 10/17/2024 (approximate). from OB Dating Form. was unplanned but accepted Complaints: No OB History Gravida5 Para3 Term2 Preterm0 AB1 Living3 SAB1 IAB0 Ectopic0 Multiple0 Live Births3 Previous history: Prior : never History of 4th degree laceration: No History of shoulder dystocia: No History of Hypertensive disorders including pre-eclampsia or gestational hypertension: No History of gestational diabetes: No Patient's Risk Screening for delivery: Have you had a prior short between 20w and 36w6d? No How many pregnancies have you had before? 4 Did you have a previous baby with a GBS Infection? Yes 2023 Please select all that apply for any prior : Baby large for gestational age MEDICAL/PSYCHOSOCIAL HISTORY: History of hemorrhage or bleeding concerns: No Thyroid Disease: No History of chronic hypertension: No History of pre-existing diabetes: No No results found for: ABORHD BMI 28.83 kg/(m^2) Last Pap: 11/12/2018, normal History of abnormal pap: No Prior treatment for cervical dysplasia: none. Last HPV: History of STDs: None Partner History of STDs: None Did you have a partner with Herpes? No Tobacco use: No E-Cigarette/Vaping Use: No Caffeine use: No Drug use: No Alcohol use: No Multivitamin with Folic acid: Yes Would refuse blood transfusion if medically necessary: No Social Needs: How often does this describe you? I don't have enough money to pay my bills: Never Within the past 12 months, have you worried that your food would run out before you had money to buy more? Never In the past 12 months, has lack of reliable transportation kept you from going to medical appointments or work, or from getting things needed for daily living? Never In the past 12 months, have you had any concerns about having a place to live, or about the condition or quality of your housing? Never Would you like more information on any of the following (please check all that apply)? Not interested Social History: Do you have any history of depression, anxiety, PTSD, or other mood problems? No Do you have a history of abuse or trauma that may impact your experience? No Are you currently employed? No Depression/Anxiety Screening: denies symptoms of depression. OB Depression and Anxiety Screening- This Encounter Feeling down, depressed, or hopeless: Not at all Little interest or pleasure in doing things: Not at all Feeling nervous, anxious, or on edge Not at all Not being able to stop or control worrying Not at all Anxiety Pre-Screening Total (If >/= 3 additional questions will be reviewed) 0 Genetic Screening: Partner present: No Patient verbalized knowledge of partner family health history: Yes Do you or your partner have any personal or family history of defects not previously discussed: No Do you have history of a complicated by anomaly, genetic condition, or demise: No Preeclampsia Risk Screening: Screening for prevention of preeclampsia: High risk factors: None Moderate risk ractors: None OB Risk Screening: Completed, positive findings include: Patient answered 'Yes' to previous baby with a GBS Infection Marital Status: Partner: Name: Baldomero Cervantes Age: 30 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 No current facility-administered medications for this visit. Allergies As of Date: 02/11/2025 (No Known Allergies) Fully Assessed 09/30/2020 Does patient have penicillin allergy: No REVIEW OF SYSTEMS: GENERAL: Negative for: Fever or Chills HEENT: Negative for: Headache, Impaired Vision, Ringing in Ears, Nosebleeds NECK: Negative for: Swelling, Pain, Stiffness RESPIRATORY: Negative for: Cough, Shortness of breath, Wheezing GASTROINTESTINAL: Negative for: Heartburn, Constipation, Diarrhea, Blood in stool, Vomiting MUSCULOSKELETAL: Negative for: Muscle or joint pain, stiffness, Joint swelling NEUROLOGIC/PSYCHIATRIC: Negative for: Weakness, Paralysis, Numbness, Tingling, Tremor, Anxiety, Depression, Memory loss SKIN: Negative for: Rash, Itching GENITOURINARY: Negative for: vaginal itching, vaginal discharge, hematuria or dysuria SENSITIVE EXAM: The sensitive examination was discussed with the Patient or Patient's Authorized Home Economist. As applicable, any other physician, advance practice provider, medical student, or other health professional student that will be observing or involved in the sensitive examination for educational or training purposes was discussed with the Patient or Authorized Home Economist. The Patient or Authorized Home Economist has agreed to proceed with the sensitive examination. (Sensitive examination includes inspection and/or palpation of the breasts, pelvis, prostate and anorectal regions). PHYSICAL EXAM: BP 122/66 Wt 170 lb 9.6 oz (77.4kg) LMP 10/17/2024 GENERAL: pleasant in no apparent distress DERMATOLOGY: Normal, without lesions, non-icteric, and non-hirsute CHEST: Normal inspiratory effort BREAST: soft, non-tender, symmetric, no dominant mass, normal nipple-areolar complex, no lymphadenopathy, and no nipple discharge ABDOMEN: soft, non-tender, and no masses NEURO: alert and oriented x3,exam grossly non-focal PELVIS: External genitalia normal without lesions. Perineal body intact. No vaginal or cervical lesions. Cervix closed. No adnexal masses or tenderness. Clinical Pelvimetry: Pelvimetry clinically assessed as adequate Limited OB ultrasound exam: not performed ASSESSMENT: 29 year old at 16w5d wks gestational age PLAN: 1) Patient oriented to practice. Patient given new OB orientation folder. Discussed nutrition, folic acid supplementation, dietary guidelines, exercise, smoking, alcohol, caffeine, and drug use. Discussed gestational weight gain guidelines. Discussed routine OB labs including STD/HIV. Discussed how to access Your guide to a health and the [employer]. Reviewed midwifery and website optimization strategist services that are available. 2) Screening: Hemoglobin A1C: ordered Baby Aspirin: The patient has been counseled about the potential benefits of low dose aspirin in and our recommendation that this be offered to all patients, regardless of whether they meet the high risk criteria specified above. She Accepts Aneuploidy Screening: Discussed aneuploidy screening, nuchal translucency/first trimester early anatomy ultrasound and NIPT. The risks/benefits and limitations of NIPT/aneuploidy screening were reviewed including the potential for false negative and false positive results. The availability of genetic counseling was reviewed. Information on aneuploidy screening was provided. The patient declines screening Myriad Carrier Screening: Discussed myriad carrier screening. We discussed the availability of professional-society guided carrier screening and reviewed the conditions screened and limitations of screening. The availability of genetic counseling was reviewed. Information on carrier screening was provided. 3) Patient offered option of Virtual Visits. Patient unsure. May consider in future. 4) Late PNC Follow up in 4 weeks or sooner prn. Megan Moreno APRN.LIANA documented in this encounter [facility] 02-11-2025 Note HNO ID: [id number] Author: LEILA ROJAS APRN.CNP Service: ? Author Type: Nurse Practitioner Type: Progress Notes Filed: 02/11/2025 09:01 Note Text: Attempted to call patient for new OB intake questions. Left voicemail. Leila Rojas APRN.CNP [facility] 02-11-2025 Note HNO ID: [id number] Author: MEGAN MORENO APRN.CNP Service: ? 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 Patient's last menstrual period was 10/17/2024 (approximate). from OB Dating Form. was unplanned but accepted Complaints: No OB History Gravida5 Para3 Term2 Preterm0 AB1 Living3 SAB1 IAB0 Ectopic0 Multiple0 Live Births3 Previous history: Prior : never History of 4th degree laceration: No History of shoulder dystocia: No History of Hypertensive disorders including pre-eclampsia or gestational hypertension: No History of gestational diabetes: No Patient's Risk Screening for delivery: Have you had a prior short between 20w and 36w6d? No How many pregnancies have you had before? 4 Did you have a previous baby with a GBS Infection? Yes 2023 Please select all that apply for any prior : Baby large for gestational age MEDICAL/PSYCHOSOCIAL HISTORY: History of hemorrhage or bleeding concerns: No Thyroid Disease: No History of chronic hypertension: No History of pre-existing diabetes: No No results found for: ABORHD BMI 28.83 kg/(m2) Last Pap: 11/12/2018, normal History of abnormal pap: No Prior treatment for cervical dysplasia: none. Last HPV: History of STDs: None Partner History of STDs: None Did you have a partner with Herpes? No Tobacco use: No E-Cigarette/Vaping Use: No Caffeine use: No Drug use: No Alcohol use: No Multivitamin with Folic acid: Yes Would refuse blood transfusion if medically necessary: No Social Needs: How often does this describe you? I don't have enough money to pay my bills: Never Within the past 12 months, have you worried that your food would run out before you had money to buy more? Never In the past 12 months, has lack of reliable transportation kept you from going to medical appointments or work, or from getting things needed for daily living? Never In the past 12 months, have you had any concerns about having a place to live, or about the condition or quality of your housing? Never Would you like more information on any of the following (please check all that apply)? Not interested Social History: Do you have any history of depression, anxiety, PTSD, or other mood problems? No Do you have a history of abuse or trauma that may impact your experience? No Are you currently employed? No Depression/Anxiety Screening: denies symptoms of depression. OB Depression and Anxiety Screening- This Encounter Feeling down, depressed, or hopeless: Not at all Little interest or pleasure in doing things: Not at all Feeling nervous, anxious, or on edge Not at all Not being able to stop or control worrying Not at all Anxiety Pre-Screening Total (If >/= 3 additional questions will be reviewed) 0 Genetic Screening: Partner present: No Patient verbalized knowledge of partner family health history: Yes Do you or your partner have any personal or family history of defects not previously discussed: No Do you have history of a complicated by anomaly, genetic condition, or demise: No Preeclampsia Risk Screening: Screening for prevention of preeclampsia: High risk factors: None Moderate risk ractors: None OB Risk Screening: Completed, positive findings include: Patient answered 'Yes' to previous baby with a GBS Infection Marital Status: Partner: Name: Baldomero Cervantes Age: 28 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 No current facility-administered medications for this visit. Allergies As of Date: 02/11/2025 (No Known Allergies) Fully Assessed 09/30/2020 Does patient have penicillin allergy: No REVIEW OF SYSTEMS: GENERAL: Negative for: Fever or Chills HEENT: Negative for: Headache, Impaired Vision, Ringing in Ears, Nosebleeds NECK: Negative for: Swelling, Pain, Stiffness RESPIRATORY: Negative for: Cough, Shortness of breath, Wheezing GASTROINTESTINAL: Negative for: Heartburn, Constipation, Diarrhea, Blood in stool, Vomiting MUSCULOSKELETAL: Negative for: Muscle or joint pain, stiffness, Joint swelling NEUROLOGIC/PSYCHIATRIC: Negative for: Weakness, Paralysis, Numbness, Tingling, Tremor, Anxiety, Depression, Memory loss SKIN: Negative for: Rash, Itching GENITOURINARY: Negative for: vaginal itching, vaginal discharge, hematuria or dysuria SENSITIVE EXAM: The sensitive examinatio (more content not included)... [facility] 02-11-2025 Instructions Laura Ramos LPN - 02/11/2025 7:50 AM EDT Please select the following link to access the [facility] Your Guide to a Healthy . [email or web address] documented in this encounter [facility] 02-10-2025 Note HNO ID: [id number] Author: LEILA ROJAS APRN.LIANA Service: ? Author Type: Nurse Practitioner Type: Progress Notes Filed: 02/10/2025 12:02 Note Text: Attempted to call patient to answer new OB questions for upcoming appointment. Left voicemail. Leilaloni Rojas APRN.CNP [facility] 02-10-2025 History of Presen t illness Narrative Attempted to call patient to answer new OB questions for upcoming appointment. Left voicemail. Leila Rojas APRN.CNP documented in this encounter [facility] 07-29-2023 Miscellaneous Notes Formattin g of this note might be different from the original. 2nd attempt, I left a message asking for her to return my call. Allyssa Soto MA I called patient regarding her upcoming new patient appointment on 08/02/[address] Schmitz. Self referred. I left a message asking for her to return my call. Allyssa Soto MA documented in this encounter [facility] 09-30-2020 History of Presen t illness Narrative Radiology Service Progress Note PATIENT NAME: Aminata Nolasco DATE OF SERVICE: September 30, 2020 TIME: 10:14 AM PATIENT IDENTITY VERIFICATION COMPLETED USING TWO (2) IDENTIFIERS: Name and Date of confirmed by patient verbally. FALL SCREENING: Has the patient had 2 falls in the last year or 1 fall with injury or currently using an Ambulatory Assistive Device (Walker, Cane, Wheelchair, Crutches, etc.)? No PATIENT GENDER DATA: Female. status: : No status: NO. PATIENT RELEVANT IMPLANT DATA REVIEWED: Yes RADIOLOGY DEPARTMENT: General X-ray: Exam(s) Completed: Chest X-Ray PERIPHERAL IV DATA: Not applicable SIGNED BY: RT Gael September 30, 2020 10:14 AM documented in this encounter [facility] Evaluation note Diagnosis Rib pain Chest pain, unspecified [facility] Diagnosis Encounter for supervision of normal intrauterine in multigravida, antepartum (HCC)- Primary 17 weeks gestation of (HCC) state, incidental with uncertain dates, antepartum (HCC) state, incidental Screen for STD (sexually transmitted disease) Screening examination for venereal disease Screening for cervical cancer Screening for malignant neoplasm of the cervix Special screening examination for human papillomavirus (HPV) LGA (large for gestational age) (HCC) Other fjliv-ffi-ljekh infants Late care (HCC) Insufficient care documented in this encounter [facility] Summary Purpose Family History No Family History Records Found Cervical Cancer Status:Active Comments:Paterna l Grandmother. Hypertension Status:Active Comments:Mother. Maternal Grandmother. no hemophilia Status:Active Cervical Cancer Status:Active Comments:Paterna l Grandmother. Hypertension Status:Active Comments:Mother. Maternal Grandmother. no hemophilia Status:Active Cervical Cancer Status:Active Comments:Paterna l Grandmother. Hypertension Status:Active Comments:Mother. Maternal Grandmother. no hemophilia Status:Active Cervical Cancer Status:Active Comments:Paterna l Grandmother. Hypertension Status:Active Comments:Mother. Maternal Grandmother. no hemophilia Status:Active Cervical Cancer Status:Active Comments:Paterna l Grandmother. Hypertension Status:Active Comments:Mother. Maternal Grandmother. no hemophilia Status:Active Cervical Cancer Status:Active Comments:Paterna l Grandmother. Hypertension Status:Active Comments:Mother. Maternal Grandmother. no hemophilia Status:Active Cervical Cancer Status:Active Comments:Paterna l Grandmother. Hypertension Status:Active Comments:Mother. Maternal Grandmother. no hemophilia Status:Active Advance Directives No Advanced Directives Records FoundNo Advanced Directives Records FoundNo Advanced Directives Records FoundNo Advanced Directives Records FoundNo Advanced Directives Records Found Additional Source Comments INFORMATION SOURCE (unrecogn ized section and content) DATE CREATED AUTHOR 08/09/2018 [facility] DATE CREATED AUTHOR AUTHOR'S ORGANIZ ATION 03/21/2023 [facility] DATE CREATED AUTHOR AUTHOR'S ORGANIZ ATION 05/18/2023 [facility] DATE CREATED AUTHOR AUTHOR'S ORGANIZ ATION 08/08/2023 [facility] DATE CREATED AUTHOR AUTHOR'S ORGANIZ ATION 03/18/2025 [facility] Source Comments (unrecognize d section and content) In the event this informatio n is protected by the Federal Confidentiality of Alcohol and Drug Abuse Patient Records regulations: The Federal rules restrict any use of the information to criminally investigate or prosecute any alcohol or drug abuse patient.[facility] the event this information is protected by the Federal Confidentiality of Alcohol and Drug Abuse Patient Records regulations: The Federal rules restrict any use of the information to criminally investigate or prosecute any alcohol or drug abuse patient.[facility] the event this information is protected by the Federal Confidentiality of Alcohol and Drug Abuse Patient Records regulations: The Federal rules restrict any use of the information to criminally investigate or prosecute any alcohol or drug abuse patient.[facility] Hospital[facility] the event this information is protected by the Federal Confidentiality of Alcohol and Drug Abuse Patient Records regulations: The Federal rules restrict any use of the information to criminally investigate or prosecute any alcohol or drug abuse patient.[facility] the event this information is protected by the Federal Confidentiality of Alcohol and Drug Abuse Patient Records regulations: The Federal rules restrict any use of the information to criminally investigate or prosecute any alcohol or drug abuse patient.[facility] Reason for Visit (unrecogniz ed section and content) Reason Comments Appointment Specialty Diagnoses / Procedures Referred By Liseth bray Referred To Contact Internal Medicine / URGENT CARE CLINIC Diagnoses chest pain and lump on chest - Triage Rm [address] Procedures URGENT CARE Self Express Cl [facility] [address] [place] [address] Referral ID Status Reason Start Date Expiration Date V isits Requested Visits Authorized [id number] Closed Financial Clearance Required - Self Pay Patient Cleared - Qualified 100% FAS 09/30/2020 12/29/2020 99 99 Reason Comments New OB Reason Comments Orthopaedic Technologist - Other [facility] Care Teams (unrecognized sec tion and content) Configuration Release Manager Relationship Specialty Start Date End Date Riya Burton MD [address] [place] [address] PCP - General 11/11/02 10/11/20 FOR RECORDS PERTAINING TO PATIENTS WHO ARE OR HAVE BEEN ENROLLED IN A CHEMICAL DEPENDENCY/SUBSTANCEABUSE PROGRAM, SOME INFORMATION MAY BE OMITTED. This clinical summary was aggregated from multiple sources. Caution should be exercised in using it in the provision of clinical care. This summary normalizes information from multiple sources, and as a consequence, information in this document may materially change the coding, format and clinical context of patient data. In addition, data may be omitted in some cases. CLINICAL DECISIONS SHOULD BE BASED ON THE PRIMARY CLINICAL RECORDS. [employer] [facility]. provides no warranty or guarantee of the accuracy or completeness of information in this document.
--- NOTE | 2025-03-28 11:49 | EX.ED.VISEXT ---
HPI History of Present Illness Chief Complaint: Bite Narrative Narrative: Chief complaint and HPI: 29-year-old female who is currently 24 weeks with no significant past medical history presents for evaluation of tick bite to the abdomen. Patient states shortly after waking up she saw a tick attached to her abdomen. States it was not there yesterday evening. Called the nurse line who told her to come emergently to the emergency department and leave the tick on her abdomen. Patient states since being in the emergency department the tick has detached. She denies any fever, chills, rash. Review of systems: See HPI Medications: As listed on the chart Allergies: As listed on the chart PFSH: Per chart Vital signs: As listed on the chart. Reviewed. Physical exam: Gen: A&O x3, NAD Head: Normocephalic, atraumatic Eyes: No sclera icterus, conjunctiva clear ENT: Moist mucous membranes CV: RRR, no murmurs Resp: Lungs CTA BL, no w/r/c GI: Abd soft, non-distended, non-tender, no r/r/g, there is a small area on the right mid abdomen where the tick may have been attached given there is a small abrasion-no tick or insect attached-patient states this was around the area she saw the tick, no rash Musc: Full ROM, no deformity Skin: Warm, dry Psych: Cooperative, appropriate mood and [facility] History no medical history Home Medications ?Medication ?Instructions ?Recorded ?Last Taken ?Type vits,calcium no.78-iron 1 tab PO DAILY 07/15/17 09/19/18 08:00 History fumarate-folic acid 29 mg-1 mg tablet (Prenatabs FA) Allergy/AdvReac Type Severity Reaction Status Date / Time No Known Allergies Allergy Verified 03/28/25 10:28 Social History Smoking Status: Never smoker EXAM Physical Exam Const Vital Signs: 03/28/25 10:26 Temperature 98.4 F Temperature Source Oral Pulse Rate 106 H Respiratory Rate 18 Blood Pressure 120/81 H Blood Pressure Mean 94 Pulse Ox 97 Oxygen Delivery Method Room Air MDM MDM MDM Narrative Medical decision making narrative: 29-year-old female who is currently 24 weeks with no significant past medical history presents for evaluation of tick bite to the abdomen. Patient states shortly after waking up she saw a tick attached to her abdomen. States it was not there yesterday evening. Called the nurse line who told her to come emergently to the emergency department and leave the tick on her abdomen. Patient states since being in the emergency department the tick has detached. She denies any fever, chills, rash. See physical exam findings. Patient is and therefore doxycycline is contraindicated. The tick was attached less than 24 hours. Per guidelines you should treat prophylactically if the tick was attached greater than 36 hours based on degree of engorgement or exposure time. Patient was informed of the guidelines. She is in agreement to hold off on prophylaxis for Lyme disease. She was educated to monitor for rash. She was educated in the future if she has a tick attached to remove it as soon as possible. Shortly after examining the patient, we did find the tick on the sheets. It was not engorged. Impression: 1. Tick bite to the abdomen Discharge Plan Triage Chief Complaint: Bite ED Provider: Jeramie Jay Dx/Rx/DC Orders Prescriptions: No Action Prenatabs FA 1 TABLET tablet 1 tab PO DAILY Primary Care Provider: Care Physician,No Primary Referrals: Care Physician,No Primary [Primary Care Provider, Medical] Print Language: Maori
== END 2025-03-28 11:58 | disposition home or self-care (01) ==
PROVIDERS: Emergency Provider Surgery; Visit Provider Surgery
DX: O9A.212 Injury, poisoning and certain other consequences of external causes complicating pregnancy, second trimester (principal); S31.159A Open bite of abdominal wall, unspecified quadrant without penetration into peritoneal cavity, initial encounter; W57.XXXA Bitten or stung by nonvenomous insect and other nonvenomous arthropods, initial encounter; Z3A.24 24 weeks gestation of pregnancy
CPT/HCPCS: 99282